=== PATIENT | female | born 1995 | race African-American/Black ===

== ENCOUNTER 2016-03-11 10:16 | Emergency (ER) | payer OTHER ==
[2016-03-11] MEDS ORDERED: METOCLOPRAMIDE INJ 10MG/2ML VIAL (J2765) As Ordered ONE (10:47)
[2016-03-11 11:09] LABS: BASO % 0.4 % (0.0-1.0); EOS # 0.1 K/mm3 (0.0-0.50); EOS % 1.1 % (0.0-3.0); LARGE UNSTAINED CELL # 0.1 K/mm3 (0.0-0.4); LARGE UNSTAINED CELL % 0.9 % (0.0-4.0); LYMPH # 2.2 K/mm3 (1.5-6.5); LYMPH % 18.8 % (24.0-44.0); MEAN CORPUSCULAR HEMOGLOBIN 27.9 pg (27.0-33.0); MEAN CORPUSCULAR VOLUME 81.9 fl (80.0-96.0); MONO # 0.4 K/mm3 (0.0-0.8); MONO % 3.1 % (0.0-5.0); NEUTROPHILS % 75.7 % (36.0-66.0); PLATELET COUNT, AUTOMATED 240 k/mm3 (150-450); RED CELL DISTRIBUTION WIDTH 13.6 % (11.5-14.5); WHITE BLOOD COUNT 11.8 K/mm3 (4.0-10.0)
[2016-03-11 11:30] LABS: ALBUMIN 3.9 GM/DL (3.2-5.2); ALBUMIN/GLOBULIN RATIO 0.95 (1.00-1.93); ALKALINE PHOSPHATASE 111 U/L (45-117); ALT/SGPT 23 U/L (12-78); AMYLASE 53 U/L (25-115); ANION GAP 10 MEQ/L (8-16); AST/SGOT 13 U/L (15-37); BILIRUBIN,DIRECT 0.1 MG/DL (0.0-0.2); BILIRUBIN,TOTAL 0.4 MG/DL (0.2-1.0); BLOOD UREA NITROGEN 12 MG/DL (7-18); CALCIUM LEVEL 9.2 MG/DL (8.5-10.1); CARBON DIOXIDE LEVEL 22 MEQ/L (21-32); CHLORIDE LEVEL 109 MEQ/L (98-107); GLUCOSE, FASTING 91 MG/DL (70-105); SODIUM LEVEL 141 MEQ/L (136-145)
[2016-03-11] MEDS ORDERED: NITROFURANTOIN (MACROBID) 100 MG CAP As Ordered ONE (13:19)
--- NOTE | 2016-03-11 13:27 | EDDOCDS ---
Physician Documentation [facility] Name: Flori Ramírez Age: 20 yrs Sex: Female : 1995 Arrival Date: 03/11/2016 Time: 10:16 Bed I4 / M4 Private MD: Other - Complete Info On Cds Disposition: 03/11/16 13:15 Discharged to Home/Self Care. Impression: Encounter for test, result positive - Early vs Missed on U/S, Urinary tract infection, site not specified, Nausea and vomiting. - Condition is Stable. - Discharge Instructions: Medicines During , First Trimester of , Fchc-on-Kmvv, Nausea and Vomiting, Chcd-pe-Efbv, Urinary Tract Infection, Bsyu-al-Oexi. - Prescriptions for Reglan 10 mg Oral Tablet - take 1 tablet by ORAL route every 6 hours take 30 minutes before meals and at bedtime; 20 tablet. Macrobid 100 mg Oral Capsule - take 100 milligram by ORAL route every 12 hours for 10 days; 20 capsule. - Medication Reconciliation, Local Pharmacy Hours form. - Follow up: [facility]; When: 1 - 2 days; Reason: Further diagnostic work-up, Recheck today's complaints, Continuance of care. Follow up: Emergency Department; Reason: Worsening of conditions. - Problem is new. - Symptoms have improved. Historical: - Allergies: no known allergies; - Home Meds: 1. none - PMHx: none; - PSHx: Adenoidectomy; Tonsillectomy; D & C; - Social history: Smoking status: Patient states former smoker of tobacco. No barriers to communication noted, The patient speaks fluent [place]. - Family history: Not pertinent. - : The pt / caregiver states he / she is not on anticoagulants. Home medication list is obtained from the patient. - Exposure Risk Screening:: None identified. 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 5 in. (165.10 cm) (R); Pain 0/10; 13:18 BP 121 / 70; Pulse 80; Resp 18; Temp 98.2; Pulse Ox 99% ; Pain 0/10; jam1 10:19 Body Mass Index 37.44 (102.06 kg, 165.10 cm) mt4 MDM: 10:37 Financial registration complete. lg 10:43 NS 0.9% 1000 ml IV at bolus once ordered. ef1 10:43 IV Saline Lock ordered. ef1 10:43 Undress patient appropriately for examination ordered. ef1 10:43 UCG by Nursing ordered. ef1 10:43 Metoclopramide 10 mg IV at 40 mg/hr once over 15 mins ordered. ef1 10:44 Amylase Ordered. EDMS 10:44 Basic Metabolic Profile Ordered. EDMS 10:44 CBC with Diff Ordered. EDMS 10:44 Lipase Ordered. EDMS 10:44 Liver Profile Ordered. EDMS 10:44 Urinalysis Ordered. EDMS 10:44 Urine Culture Ordered. EDMS 10:44 NOTHING BY MOUTH+DIET ordered. EDMS 10:51 Hcg, Serum Quantitative Ordered. EDMS 10:52 Ultrasound 1st Trimester Ordered. EDMS 10:52 Type & Screen Ordered. EDMS 10:55 [facility] [place] was scanned into [employer] and attached to record. lg 11:35 TRANSVAGINAL US Ordered. EDMS 11:35 DUPLEX SCAN LIMITED (DOPPLER) Ordered. EDMS 11:51 Basic Metabolic Profile Reviewed. ef1 11:51 CBC with Diff Reviewed. ef1 11:51 Liver Profile Reviewed. ef1 11:51 Urinalysis Reviewed. ef1 11:51 Amylase Reviewed. ef1 11:51 Lipase Reviewed. ef1 11:51 Hcg, Serum Quantitative Reviewed. ef1 11:51 Type & Screen Reviewed. ef1 13:14 Nitrofurantoin 100 mg PO once ordered. ef1 Point of Care Testing: Urine : 10:51 hCG Reading: Positive; Control Reading: Positive; kr3 Ranges: Administered Medications: 10:46 CANCELLED (Duplicate Order): NS 0.9% 1000 ml IV at bolus once dsf 10:52 Drug: NS 0.9% 1000 ml [sodium chloride 0.9 % injection solution] Route: IV; Rate: dsf bolus; Site: left antecubital; 13:22 Follow up: IV Status: Infusion discontinued; IV Intake: 600ml dsf 10:53 Drug: Metoclopramide 10 mg [metoclopramide 5 mg/mL injection solution] Route: IV; Rate: dsf 40 mg/hr; Infused Over: 15 mins; Site: left antecubital; 11:32 Follow up: IV Status: Completed infusion srm 13:22 Follow up: IV Status: Completed infusion; IV Intake: 10ml dsf 13:22 Drug: Nitrofurantoin 100 mg Route: PO; dsf Signatures: Dispatcher [employer] EDSebastian Brunson, RN RN dwg Micheline Quevedo, Reg Reg lg Valentina Ernandez, PA-C AMARILYS ef1 Shiloh Whiting RN RN dsf Hallie Damon RN srm The chart was reviewed and I authenticate all verbal orders and agree with the evaluation and treatment provided.Corrections: (The following items were deleted from the chart) 10:46 10:43 NS 0.9% 1000 ml IV at bolus once ordered. ef1 dsf Attachments: 10:55 [facility] [place] Agreement lg MTDD
--- NOTE | 2016-03-11 13:27 | EDDOCDS ---
Nurse's Notes [facility] Name: Flori Ramírez Age: 20 yrs Sex: Female : 1995 Arrival Date: 03/11/2016 Time: 10:16 Bed I4 / M4 Private MD: Other - Complete Info On Cds Diagnosis: Encounter for test, result positive-Early vs Missed on U/S;Urinary tract infection, site not specified;Nausea and vomiting Presentation: 03/11 10:22 Presenting complaint: Patient states: Multiple complaints, nausea/vomiting for 3-4 dwg days, headaches, dizziness, also states has had 4 positive tests at home. Adult Sepsis Screening: The patient does not have new or worsening altered mentation. Patient's respiratory rate is less than 22. Systolic blood pressure is greater than 100. Patient has a qSOFA score of 0- Negative Sepsis Screen. Suicide/Homicide risk assessment- the patient denies having any suicidal and/or homicidal ideations and does not present with any other emotional, behavioral or mental health complaints. Status: The patient is a dependent. Transition of care: patient was not received from another setting of care. 10:22 Acuity: RAFA Level 3 dwg 10:22 Method Of Arrival: Walkin/Carried/Asstd dwg Triage Assessment: 10:24 General: Appears in no apparent distress. Pain: Pain currently is 0 out of 10 on a pain dwg scale. HIV screening NA for this visit Offered previously. 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 none - PMHx: none; - PSHx: Adenoidectomy; Tonsillectomy; D & C; - Social history: Smoking status: Patient states former smoker of tobacco. No barriers to communication noted, The patient speaks fluent Azeri. - Family history: Not pertinent. - : The pt / caregiver states he / she is not on anticoagulants. Home medication list is obtained from the patient. - Exposure Risk Screening:: None identified. Screenin:30 Screening information is obtained from the patient. Primary language is Azeri. Fall jam1 risk: No risks identified. Assistance ADL's: requires no assistance with activities of daily living. Abuse/DV Screen: The patient / caregiver reports he/she is: not in a situation that causes fear, pain or injury. Nutritional screening: No deficits noted. Exposure Risk Screening: None identified. Advance Directives: Currently, there is no health care proxy. There is no active DNR order. There is no living will. There is no Power of Cycle Consultant. Advance directive information has not previously been placed in an [facility] medical record. Further advance directive information is declined. home support is adequate. Assessment: 10:56 General: Appears in no apparent distress, Behavior is appropriate for age, cooperative. srm Neurological: No deficits noted. EENT: No deficits noted. Respiratory: Airway is patent Respiratory effort is even, unlabored, Breath sounds are clear bilaterally. GI: Abdomen is non- distended Bowel sounds present X 4 quads. Abd is soft and non tender X 4 quads. Derm: No deficits noted. 11:32 General: Appears in no apparent distress, Behavior is appropriate for age, cooperative, srm at bedside. Neurological: No deficits noted. EENT: No deficits noted. Cardiovascular: No deficits noted. GI: No deficits noted. : No deficits noted. Musculoskeletal: No deficits noted. 12:15 Adult Sepsis Screening: The patient does not have new or worsening altered mentation. dsf Patient's respiratory rate is less than 22. Systolic blood pressure is greater than 100. Patient has a qSOFA score of 0- Negative Sepsis Screen. General: Appears in no apparent distress, comfortable, Behavior is appropriate for age, cooperative. Pain: Denies pain. Neurological: Level of Consciousness is awake, alert. Cardiovascular: Capillary refill < 3 seconds. Respiratory: Airway is patent Respiratory effort is even, unlabored, Respiratory pattern is regular, symmetrical. GI: Denies nausea. Derm: Skin is pink, warm & dry. 13:25 Adult Sepsis Screening: The patient does not have new or worsening altered mentation. dsf Patient's respiratory rate is less than 22. Systolic blood pressure is greater than 100. Patient has a qSOFA score of 0- Negative Sepsis Screen. General: Appears in no apparent distress, comfortable, Behavior is appropriate for age, cooperative. Pain: Denies pain. Neurological: Level of Consciousness is awake, alert. Cardiovascular: Capillary refill < 3 seconds. Respiratory: Airway is patent Respiratory effort is even, unlabored, Respiratory pattern is regular, symmetrical. GI: Denies nausea. Derm: Skin is pink, warm & dry. Vital Signs: 10:19 BP 134 / 66 RA Sitting (auto/reg); Pulse 84; Resp 18 S; Temp 98.9(O); Pulse Ox 100% on mt4 R/A; Weight 102.06 kg (R); Height 5 ft. 5 in. (165.10 cm) (R); Pain 0/10; 13:18 BP 121 / 70; Pulse 80; Resp 18; Temp 98.2; Pulse Ox 99% ; Pain 0/10; jam1 10:19 Body Mass Index 37.44 (102.06 kg, 165.10 cm) mt4 Vitals: 10:19 Log In Time: March 11, 2016 at 10:16. mt4 ED Course: 10:18 Patient visited by Sophie Vasquez. mt4 10:18 Patient moved to Waiting mt4 10:19 Other - Complete Info On Cds is Private Physician. mt4 10:21 Patient moved to Pre RCE mt4 10:23 Triage Initiated dwg 10:25 Patient moved to Triage 1 dwg 10:28 Valentina Ernandez PA-C is PHCP. ef1 10:28 Lawrence Bartholomew MD is Attending Physician. ef1 10:28 Patient visited by Valentina Ernandez PA-C. ef1 10:46 Patient moved to I4 / M4 kr3 10:50 Patient visited by Valentina Ernandez PA-C. ef1 10:53 The patient / caregiver is instructed regarding the plan of care and ED course. Patient srm has correct armband on for positive identification. Placed in gown. Bed in low position. Call light in reach. 10:53 Inserted saline lock: 20 gauge in left antecubital area and blood collected. srm 10:55 [facility] [place] Payment Agreement was scanned into [employer] and attached to record. lg 10:57 Patient visited by Hallie Damon RN. srm 10:57 Type & Screen Sent. srm 10:57 Hcg, Serum Quantitative Sent. srm 10:57 Amylase Sent. srm 10:57 Basic Metabolic Profile Sent. srm 10:57 CBC with Diff Sent. srm 10:57 Liver Profile Sent. srm 10:57 Lipase Sent. srm 10:57 Urinalysis Sent. srm 10:57 Urine Culture Sent. srm 11:11 Patient name changed from Flori\S\Abbi\S\Loera\S\ to Flori\S\Abbi\S\Ramírez. EDMS 11:33 Patient visited by Hallie Damon RN. srm 11:51 Patient visited by Valentina Ernandez PA-C. ef1 12:16 Patient visited by Shiloh Whiting RN. dsf 12:29 Patient has correct armband on for positive identification. Bed in low position. Call jam1 light in reach. Side rails up X 1. Door closed. 13:02 Patient visited by Valentina Ernandez PA-C. ef1 13:15 [place], OB is Referral Physician. ef1 13:25 Discontinued lock intact, bleeding controlled, pressure dressing applied, No dsf redness/swelling at site. No procedures done that require assistance. Administered Medications: 10:46 CANCELLED (Duplicate Order): NS 0.9% 1000 ml IV at bolus once dsf 10:52 Drug: NS 0.9% 1000 ml [sodium chloride 0.9 % injection solution] Route: IV; Rate: dsf bolus; Site: left antecubital; 13:22 Follow up: IV Status: Infusion discontinued; IV Intake: 600ml dsf 10:53 Drug: Metoclopramide 10 mg [metoclopramide 5 mg/mL injection solution] Route: IV; Rate: dsf 40 mg/hr; Infused Over: 15 mins; Site: left antecubital; 11:32 Follow up: IV Status: [facility] 13:22 Follow up: IV Status: Completed infusion; IV Intake: 10ml dsf 13:22 Drug: Nitrofurantoin 100 mg Route: PO; dsf Point of Care Testing: Urine : 10:51 hCG Reading: Positive; Control Reading: Positive; kr3 Ranges: Intake: 13:22 IV: 10.00ml; Total: 10.00ml. dsf 13:22 IV: 600.00ml; Total: 610.00ml. dsf Order Results: Lab Order: Amylase; SPEC'M 03/11/16 10:52 Test: AMYLASE; Value: 53; Range: 25-115; Units: U/L; Status: F Lab Order: Basic Metabolic Profile; SPEC'M 03/11/16 10:52 Test: GLUCOSE, FASTING; Value: 91; Range: 70-105; Units: MG/DL; Status: F Test: BLOOD UREA NITROGEN; Value: 12; Range: 7-18; Units: MG/DL; Status: F Test: CREATININE FOR GFR; Value: 0.80; Range: 0.55-1.02; Units: MG/DL; Status: F Test: SODIUM LEVEL; Value: 141; Range: 136-145; Units: MEQ/L; Status: F Test: POTASSIUM SERUM; Value: 4.0; Range: 3.5-5.1; Units: MEQ/L; Status: F Test: CHLORIDE LEVEL; Value: 109; Range: 98-107; Abnormal: Above high normal; Units: MEQ/L; Status: F Test: CARBON DIOXIDE LEVEL; Value: 22; Range: 21-32; Units: MEQ/L; Status: F Test: ANION GAP; Value: 10; Range: 8-16; Units: MEQ/L; Status: F Test: CALCIUM LEVEL; Value: 9.2; Range: 8.5-10.1; Units: MG/DL; Status: F Lab Order: CBC with Diff; SPEC'M 03/11/16 10:52 Test: WHITE BLOOD COUNT; Value: 11.8; Range: 4.0-10.0; Abnormal: Above high normal; Units: K/mm3; Status: F Test: RED BLOOD COUNT; Value: 4.94; Range: 4.00-5.40; Units: M/mm3; Status: F Test: HEMOGLOBIN; Value: 13.8; Range: 12.0-16.0; Units: g/dl; Status: F Test: HEMATOCRIT; Value: 40.4; Range: 36.0-47.0; Units: %; Status: F Test: MEAN CORPUSCULAR VOLUME; Value: 81.9; Range: 80.0-96.0; Units: fl; Status: F Test: MEAN CORPUSCULAR HEMOGLOBIN; Value: 27.9; Range: 27.0-33.0; Units: pg; Status: F Test: MEAN CORPUSCULAR HGB CONC; Value: 34.0; Range: 32.0-36.5; Units: g/dl; Status: F Test: RED CELL DISTRIBUTION WIDTH; Value: 13.6; Range: 11.5-14.5; Units: %; Status: F Test: PLATELET COUNT, AUTOMATED; Value: 240; Range: 150-450; Units: k/mm3; Status: F Test: NEUTROPHILS %; Value: 75.7; Range: 36.0-66.0; Abnormal: Above high normal; Units: %; Status: F Test: LYMPH %; Value: 18.8; Range: 24.0-44.0; Abnormal: Below low normal; Units: %; Status: F Test: MONO %; Value: 3.1; Range: 0.0-5.0; Units: %; Status: F Test: EOS %; Value: 1.1; Range: 0.0-3.0; Units: %; Status: F Test: BASO %; Value: 0.4; Range: 0.0-1.0; Units: %; Status: F Test: LARGE UNSTAINED CELL %; Value: 0.9; Range: 0.0-4.0; Units: %; Status: F Test: NEUTROPHILS #; Value: 9.0; Range: 1.8-7.7; Abnormal: Above high normal; Units: K/mm3; Status: F Test: LYMPH #; Value: 2.2; Range: 1.5-6.5; Units: K/mm3; Status: F Test: MONO #; Value: 0.4; Range: 0.0-0.8; Units: K/mm3; Status: F Test: EOS #; Value: 0.1; Range: 0.0-0.50; Units: K/mm3; Status: F Test: BASO #; Value: 0.0; Range: 0.0-0.2; Units: K/mm3; Status: F Test: LARGE UNSTAINED CELL #; Value: 0.1; Range: 0.0-0.4; Units: K/mm3; Status: F Lab Order: Lipase; SPEC'M 03/11/16 10:52 Test: LIPASE; Value: 114; Range: 73-393; Units: U/L; Status: F Lab Order: Liver Profile; SPEC'M 03/11/16 10:52 Test: AST/SGOT; Value: 13; Range: 15-37; Abnormal: Below low normal; Units: U/L; Status: F Test: ALT/SGPT; Value: 23; Range: 12-78; Units: U/L; Status: F Test: ALKALINE PHOSPHATASE; Value: 111; Range: 45-117; Units: U/L; Status: F Test: BILIRUBIN,TOTAL; Value: 0.4; Range: 0.2-1.0; Units: MG/DL; Status: F Test: BILIRUBIN,DIRECT; Value: 0.1; Range: 0.0-0.2; Units: MG/DL; Status: F Test: TOTAL PROTEIN; Value: 8.0; Range: 6.4-8.2; Units: GM/DL; Status: F Test: ALBUMIN; Value: 3.9; Range: 3.2-5.2; Units: GM/DL; Status: F Test: ALBUMIN/GLOBULIN RATIO; Value: 0.95; Range: 1.00-1.93; Abnormal: Below low normal; Status: F Lab Order: Urinalysis; SPEC'M 03/11/16 10:52 Test: APPEARANCE, URINE; Value: CLOUDY; Range: CLEAR; Abnormal: Above high normal; Status: F Test: COLOR, URINE; Value: YELLOW; Range: YELLOW; Status: F Test: PH,URINE; Value: 5.0; Range: 5.0-9.0; Units: UNITS; Status: F Test: SPECIFIC GRAVITY URINE AUTO; Value: 1.029; Range: 1.002-1.035; Status: F Test: PROTEIN, URINE AUTO; Value: 1+; Range: NEGATIVE; Abnormal: Above high normal; Units: mg/dL; Status: F Test: GLUCOSE, URINE (UA) AUTO; Value: NEGATIVE; Range: NEGATIVE; Units: mg/dL; Status: F Test: KETONE, URINE AUTO; Value: NEGATIVE; Range: NEGATIVE; Units: mg/dL; Status: F Test: UROBILINOGEN, URINE AUTO; Value: 0.2; Range: 0.0-2.0; Units: mg/dL; Status: F Test: BILIRUBIN, URINE AUTO; Value: NEGATIVE; Range: NEGATIVE; Status: F Test: NITRITE, URINE AUTO; Value: NEGATIVE; Range: NEGATIVE; Status: F Test: LEUKOCYTE ESTERASE, URINE AUTO; Value: 2+; Range: NEGATIVE; Abnormal: Above high normal; Status: F Test: BLOOD, URINE BLOOD; Value: NEGATIVE; Range: NEGATIVE; Status: F Test: WBC, URINE AUTO; Value: 14; Range: 0-3; Abnormal: Above high normal; Units: /HPF; Status: F Test: RBC, URINE AUTO; Value: 4; Range: 0-3; Abnormal: Above high normal; Units: /HPF; Status: F Test: BACTERIA, URINE AUTO; Value: NEGATIVE; Range: NEGATIVE; Status: F Test: SQUAMOUS EPITHELIAL CELL UR AU; Value: 11; Range: 0-6; Units: /HPF; Status: F Test: MUCUS, URINE; Value: LARGE; Range: NEGATIVE; Status: F Test: HYALINE CAST, URINE AUTO; Value: 0; Range: 0-1; Units: /LPF; Status: F Lab Order: Hcg, Serum Quantitative; SPEC'M 03/11/16 10:52 Test: HCG, SERUM QUANTITATIVE; Value: 71; Units: MIU/ML; Status: F Test Note: ; GESTATIONAL AGE APPROXIMATE HCG RANGE (MIU/ML) 0.2-1 WEEK 5-50 1-2 WEEKS 50-500 2-3 WEEKS 100-5,000 3-4 WEEKS 500-10,000 4-5 WEEKS 1,000-50,000 5-6 WEEKS 10,000-100,000 6-8 WEEKS 15,000-200,000 2-3 MONTHS 10,000-100,000 NON FEMALES LESS THAN 3.0 Patient samples may contain human heterophilic antibodies that could react with immunoassays to give falsely elevated or depressed results. This assay has been designed to minimize interference from heterophilic antibodies. Elevated hCG levels have also been associated with trophoblastic disease and nontrophoblastic neoplasms. The possibility of having these diseases should be considered before a diagnosis of is made. This test is not intended for use as a surrogate marker for aiding in the diagnosis or monitoring the treatment of cancer patients. [employer] methodology. Lab Order: Type & Screen; SPEC'M 03/11/16 10:52 Test: BLOOD TYPE; Value: B POS; Status: F Test: AB SCREEN (INDIRECT PACO)GEL; Value: NEGATIVE; Status: F Outcome: 13:15 Discharge ordered by Provider. ef1 13:25 Discharge Assessment: Patient awake, alert and oriented x 3. No cognitive and/or dsf functional deficits noted. Patient verbalized understanding of disposition instructions. patient administered narcotics - no. The following High Risk Discharge criteria are identified: None. Discharged to home ambulatory, with significant other. Condition: stable. Discharge instructions given to patient, Instructed on discharge instructions, follow up and referral plans. medication usage, Demonstrated understanding of instructions, medications, Pt was receptive of discharge instructions/ teaching. Prescriptions given X 2. Ultrasound Study completed. Property sent home with patient. 13:26 Patient left the ED. dsf Signatures: Dispatcher [employer] EDSebastian Brunson, RN RN Hallie Wellington RN RN srm Guerda Muro, CRM MARKETING SPECIALIST CRM MARKETING SPECIALIST jam1 Micheline Quevedo, Rossana Masters lgRN RN kr3 Sophie Vasquez mt4 Valentina Ernandez, PA-C PA-C ef1 Shiloh Whiting,RN RN dsf Corrections: (The following items were deleted from the chart) 11:42 10:24 LMP 02/03/2016 luis sher MTDD
--- NOTE | 2016-03-11 22:55 | REP ---
First trimester OB ultrasound 03/11/2016 Indication: Pelvic pain, mid, positive urine test Comparison: None Date of last menstrual period: , corresponding to 2-ptju-2-day gestational age the patient is G3, P1, Ab 1 Findings: Uterus measures 8.7 x 4.6 x 5.8 cm. Endometrium is 8.7 mm in thickness. There is no evidence of intrauterine gestational sac or pole. Right ovary measures 4 x 3.1 x 3.4 cm and contains an involuting 1.3 cm corpus luteum cyst. There are some prominent vessels in the region of the right adnexa. Left ovary measures 3.9 x 2.1 x 3.3 cm. Perfusion is noted to the bilateral ovaries, therefore no evidence of torsion. There is a small amount of free fluid is seen adjacent to the right ovary. Impression Endometrium 8.7 mm in thickness and smooth. There is no intrauterine gestational sac or pole. The differential diagnosis at this time includes early intrauterine , and possibly missed . Ectopic cannot be completely excluded on the basis of this study. Recommend correlation with serial quantitative beta HCG and follow-up OB ultrasound to ensure a viable intrauterine . Signed by Fiordaliza Mtz MD 03/11/2016 10:46 P
--- NOTE | 2016-03-13 14:27 | EDDOCDS ---
Nurse's Notes [facility], [place] Name: Flori Ramírez Age: 20 yrs Sex: Female : 1995 Arrival Date: 03/11/2016 Time: 10:16 Bed I4 / M4 Private MD: Other - Complete Info On Cds Diagnosis: Encounter for test, result positive-Early vs Missed on U/S;Urinary tract infection, site not specified;Nausea and vomiting Presentation: 03/11 10:22 Presenting complaint: Patient states: Multiple complaints, nausea/vomiting for 3-4 dwg days, headaches, dizziness, also states has had 4 positive tests at home. Adult Sepsis Screening: The patient does not have new or worsening altered mentation. Patient's respiratory rate is less than 22. Systolic blood pressure is greater than 100. Patient has a qSOFA score of 0- Negative Sepsis Screen. Suicide/Homicide risk assessment- the patient denies having any suicidal and/or homicidal ideations and does not present with any other emotional, behavioral or mental health complaints. Status: The patient is a dependent. Transition of care: patient was not received from another setting of care. 10:22 Acuity: RAFA Level 3 dwg 10:22 Method Of Arrival: Walkin/Carried/Asstd dwg Triage Assessment: 10:24 General: Appears in no apparent distress. Pain: Pain currently is 0 out of 10 on a pain dwg scale. HIV screening NA for this visit Offered previously. 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 none - PMHx: none; - PSHx: Adenoidectomy; Tonsillectomy; D & C; - Social history: Smoking status: Patient states former smoker of tobacco. No barriers to communication noted, The patient speaks fluent Telugu. - Family history: Not pertinent. - : The pt / caregiver states he / she is not on anticoagulants. Home medication list is obtained from the patient. - Exposure Risk Screening:: None identified. Screenin:30 Screening information is obtained from the patient. Primary language is Telugu. Fall jam1 risk: No risks identified. Assistance ADL's: requires no assistance with activities of daily living. Abuse/DV Screen: The patient / caregiver reports he/she is: not in a situation that causes fear, pain or injury. Nutritional screening: No deficits noted. Exposure Risk Screening: None identified. Advance Directives: Currently, there is no health care proxy. There is no active DNR order. There is no living will. There is no Power of Literature Teacher. Advance directive information has not previously been placed in an [facility] medical record. Further advance directive information is declined. home support is adequate. Assessment: 10:56 General: Appears in no apparent distress, Behavior is appropriate for age, cooperative. srm Neurological: No deficits noted. EENT: No deficits noted. Respiratory: Airway is patent Respiratory effort is even, unlabored, Breath sounds are clear bilaterally. GI: Abdomen is non- distended Bowel sounds present X 4 quads. Abd is soft and non tender X 4 quads. Derm: No deficits noted. 11:32 General: Appears in no apparent distress, Behavior is appropriate for age, cooperative, srm at bedside. Neurological: No deficits noted. EENT: No deficits noted. Cardiovascular: No deficits noted. GI: No deficits noted. : No deficits noted. Musculoskeletal: No deficits noted. 12:15 Adult Sepsis Screening: The patient does not have new or worsening altered mentation. dsf Patient's respiratory rate is less than 22. Systolic blood pressure is greater than 100. Patient has a qSOFA score of 0- Negative Sepsis Screen. General: Appears in no apparent distress, comfortable, Behavior is appropriate for age, cooperative. Pain: Denies pain. Neurological: Level of Consciousness is awake, alert. Cardiovascular: Capillary refill < 3 seconds. Respiratory: Airway is patent Respiratory effort is even, unlabored, Respiratory pattern is regular, symmetrical. GI: Denies nausea. Derm: Skin is pink, warm & dry. 13:25 Adult Sepsis Screening: The patient does not have new or worsening altered mentation. dsf Patient's respiratory rate is less than 22. Systolic blood pressure is greater than 100. Patient has a qSOFA score of 0- Negative Sepsis Screen. General: Appears in no apparent distress, comfortable, Behavior is appropriate for age, cooperative. Pain: Denies pain. Neurological: Level of Consciousness is awake, alert. Cardiovascular: Capillary refill < 3 seconds. Respiratory: Airway is patent Respiratory effort is even, unlabored, Respiratory pattern is regular, symmetrical. GI: Denies nausea. Derm: Skin is pink, warm & dry. Vital Signs: 10:19 BP 134 / 66 RA Sitting (auto/reg); Pulse 84; Resp 18 S; Temp 98.9(O); Pulse Ox 100% on mt4 R/A; Weight 102.06 kg (R); Height 5 ft. 5 in. (165.10 cm) (R); Pain 0/10; 13:18 BP 121 / 70; Pulse 80; Resp 18; Temp 98.2; Pulse Ox 99% ; Pain 0/10; jam1 10:19 Body Mass Index 37.44 (102.06 kg, 165.10 cm) mt4 Vitals: 10:19 Log In Time: March 11, 2016 at 10:16. mt4 ED Course: 10:18 Patient visited by Sophie Vasquez. mt4 10:18 Patient moved to Waiting mt4 10:19 Other - Complete Info On Cds is Private Physician. mt4 10:21 Patient moved to Pre RCE mt4 10:23 Triage Initiated dwg 10:25 Patient moved to Triage 1 dwg 10:28 Valentina Ernandez PA-C is PHCP. ef1 10:28 Lawrence Bartholomew MD is Attending Physician. ef1 10:28 Patient visited by Valentina Ernandez PA-C. ef1 10:46 Patient moved to I4 / M4 kr3 10:50 Patient visited by Valentina Ernandez PA-C. ef1 10:53 The patient / caregiver is instructed regarding the plan of care and ED course. Patient srm has correct armband on for positive identification. Placed in gown. Bed in low position. Call light in reach. 10:53 Inserted saline lock: 20 gauge in left antecubital area and blood collected. srm 10:55 [facility] [place] Payment Agreement was scanned into [employer] and attached to record. lg 10:57 Patient visited by Hallie Damon RN. srm 10:57 Type & Screen Sent. srm 10:57 Hcg, Serum Quantitative Sent. srm 10:57 Amylase Sent. srm 10:57 Basic Metabolic Profile Sent. srm 10:57 CBC with Diff Sent. srm 10:57 Liver Profile Sent. srm 10:57 Lipase Sent. srm 10:57 Urinalysis Sent. srm 10:57 Urine Culture Sent. srm 11:11 Patient name changed from Flori\S\Abbi\S\Loera\S\ to Flori\S\Abbi\S\Ramírez. EDMS 11:33 Patient visited by Hallie Damon RN. srm 11:51 Patient visited by Valentina Ernandez PA-C. ef1 12:16 Patient visited by Shiloh Whiting RN. dsf 12:29 Patient has correct armband on for positive identification. Bed in low position. Call jam1 light in reach. Side rails up X 1. Door closed. 13:02 Patient visited by Valentina Ernandez PA-C. ef1 13:15 [place], OB is Referral Physician. ef1 13:25 Discontinued lock intact, bleeding controlled, pressure dressing applied, No dsf redness/swelling at site. No procedures done that require assistance. 14:26 T-Sheet-- Draft Copy was scanned into [employer] and attached to record. gb 14:26 Radiology Report was scanned into [employer] and attached to record. gb 22:57 Ultrasound 1st Trimester Returned. EDMS Administered Medications: 10:46 CANCELLED (Duplicate Order): NS 0.9% 1000 ml IV at bolus once dsf 10:52 Drug: NS 0.9% 1000 ml [sodium chloride 0.9 % injection solution] Route: IV; Rate: dsf bolus; Site: left antecubital; 13:22 Follow up: IV Status: Infusion discontinued; IV Intake: 600ml dsf 10:53 Drug: Metoclopramide 10 mg [metoclopramide 5 mg/mL injection solution] Route: IV; Rate: dsf 40 mg/hr; Infused Over: 15 mins; Site: left antecubital; 11:32 Follow up: IV Status: Completed infusion [facility] 13:22 Follow up: IV Status: Completed infusion; IV Intake: 10ml dsf 13:22 Drug: Nitrofurantoin 100 mg Route: PO; dsf Point of Care Testing: Urine : 10:51 hCG Reading: Positive; Control Reading: Positive; kr3 Ranges: Intake: 13:22 IV: 10.00ml; Total: 10.00ml. dsf 13:22 IV: 600.00ml; Total: 610.00ml. dsf Order Results: Lab Order: Amylase; SPEC'M 03/11/16 10:52 Test: AMYLASE; Value: 53; Range: 25-115; Units: U/L; Status: F Lab Order: Basic Metabolic Profile; SPEC'M 03/11/16 10:52 Test: GLUCOSE, FASTING; Value: 91; Range: 70-105; Units: MG/DL; Status: F Test: BLOOD UREA NITROGEN; Value: 12; Range: 7-18; Units: MG/DL; Status: F Test: CREATININE FOR GFR; Value: 0.80; Range: 0.55-1.02; Units: MG/DL; Status: F Test: SODIUM LEVEL; Value: 141; Range: 136-145; Units: MEQ/L; Status: F Test: POTASSIUM SERUM; Value: 4.0; Range: 3.5-5.1; Units: MEQ/L; Status: F Test: CHLORIDE LEVEL; Value: 109; Range: 98-107; Abnormal: Above high normal; Units: MEQ/L; Status: F Test: CARBON DIOXIDE LEVEL; Value: 22; Range: 21-32; Units: MEQ/L; Status: F Test: ANION GAP; Value: 10; Range: 8-16; Units: MEQ/L; Status: F Test: CALCIUM LEVEL; Value: 9.2; Range: 8.5-10.1; Units: MG/DL; Status: F Lab Order: CBC with Diff; SPEC'M 03/11/16 10:52 Test: WHITE BLOOD COUNT; Value: 11.8; Range: 4.0-10.0; Abnormal: Above high normal; Units: K/mm3; Status: F Test: RED BLOOD COUNT; Value: 4.94; Range: 4.00-5.40; Units: M/mm3; Status: F Test: HEMOGLOBIN; Value: 13.8; Range: 12.0-16.0; Units: g/dl; Status: F Test: HEMATOCRIT; Value: 40.4; Range: 36.0-47.0; Units: %; Status: F Test: MEAN CORPUSCULAR VOLUME; Value: 81.9; Range: 80.0-96.0; Units: fl; Status: F Test: MEAN CORPUSCULAR HEMOGLOBIN; Value: 27.9; Range: 27.0-33.0; Units: pg; Status: F Test: MEAN CORPUSCULAR HGB CONC; Value: 34.0; Range: 32.0-36.5; Units: g/dl; Status: F Test: RED CELL DISTRIBUTION WIDTH; Value: 13.6; Range: 11.5-14.5; Units: %; Status: F Test: PLATELET COUNT, AUTOMATED; Value: 240; Range: 150-450; Units: k/mm3; Status: F Test: NEUTROPHILS %; Value: 75.7; Range: 36.0-66.0; Abnormal: Above high normal; Units: %; Status: F Test: LYMPH %; Value: 18.8; Range: 24.0-44.0; Abnormal: Below low normal; Units: %; Status: F Test: MONO %; Value: 3.1; Range: 0.0-5.0; Units: %; Status: F Test: EOS %; Value: 1.1; Range: 0.0-3.0; Units: %; Status: F Test: BASO %; Value: 0.4; Range: 0.0-1.0; Units: %; Status: F Test: LARGE UNSTAINED CELL %; Value: 0.9; Range: 0.0-4.0; Units: %; Status: F Test: NEUTROPHILS #; Value: 9.0; Range: 1.8-7.7; Abnormal: Above high normal; Units: K/mm3; Status: F Test: LYMPH #; Value: 2.2; Range: 1.5-6.5; Units: K/mm3; Status: F Test: MONO #; Value: 0.4; Range: 0.0-0.8; Units: K/mm3; Status: F Test: EOS #; Value: 0.1; Range: 0.0-0.50; Units: K/mm3; Status: F Test: BASO #; Value: 0.0; Range: 0.0-0.2; Units: K/mm3; Status: F Test: LARGE UNSTAINED CELL #; Value: 0.1; Range: 0.0-0.4; Units: K/mm3; Status: F Lab Order: Lipase; SPEC'M 03/11/16 10:52 Test: LIPASE; Value: 114; Range: 73-393; Units: U/L; Status: F Lab Order: Liver Profile; SPEC'M 03/11/16 10:52 Test: AST/SGOT; Value: 13; Range: 15-37; Abnormal: Below low normal; Units: U/L; Status: F Test: ALT/SGPT; Value: 23; Range: 12-78; Units: U/L; Status: F Test: ALKALINE PHOSPHATASE; Value: 111; Range: 45-117; Units: U/L; Status: F Test: BILIRUBIN,TOTAL; Value: 0.4; Range: 0.2-1.0; Units: MG/DL; Status: F Test: BILIRUBIN,DIRECT; Value: 0.1; Range: 0.0-0.2; Units: MG/DL; Status: F Test: TOTAL PROTEIN; Value: 8.0; Range: 6.4-8.2; Units: GM/DL; Status: F Test: ALBUMIN; Value: 3.9; Range: 3.2-5.2; Units: GM/DL; Status: F Test: ALBUMIN/GLOBULIN RATIO; Value: 0.95; Range: 1.00-1.93; Abnormal: Below low normal; Status: F Lab Order: Urinalysis; [facility]'M 03/11/16 10:52 Test: APPEARANCE, URINE; Value: CLOUDY; Range: CLEAR; Abnormal: Above high normal; Status: F Test: COLOR, URINE; Value: YELLOW; Range: YELLOW; Status: F Test: PH,URINE; Value: 5.0; Range: 5.0-9.0; Units: UNITS; Status: F Test: SPECIFIC GRAVITY URINE AUTO; Value: 1.029; Range: 1.002-1.035; Status: F Test: PROTEIN, URINE AUTO; Value: 1+; Range: NEGATIVE; Abnormal: Above high normal; Units: mg/dL; Status: F Test: GLUCOSE, URINE (UA) AUTO; Value: NEGATIVE; Range: NEGATIVE; Units: mg/dL; Status: F Test: KETONE, URINE AUTO; Value: NEGATIVE; Range: NEGATIVE; Units: mg/dL; Status: F Test: UROBILINOGEN, URINE AUTO; Value: 0.2; Range: 0.0-2.0; Units: mg/dL; Status: F Test: BILIRUBIN, URINE AUTO; Value: NEGATIVE; Range: NEGATIVE; Status: F Test: NITRITE, URINE AUTO; Value: NEGATIVE; Range: NEGATIVE; Status: F Test: LEUKOCYTE ESTERASE, URINE AUTO; Value: 2+; Range: NEGATIVE; Abnormal: Above high normal; Status: F Test: BLOOD, URINE BLOOD; Value: NEGATIVE; Range: NEGATIVE; Status: F Test: WBC, URINE AUTO; Value: 14; Range: 0-3; Abnormal: Above high normal; Units: /HPF; Status: F Test: RBC, URINE AUTO; Value: 4; Range: 0-3; Abnormal: Above high normal; Units: /HPF; Status: F Test: BACTERIA, URINE AUTO; Value: NEGATIVE; Range: NEGATIVE; Status: F Test: SQUAMOUS EPITHELIAL CELL UR AU; Value: 11; Range: 0-6; Units: /HPF; Status: F Test: MUCUS, URINE; Value: LARGE; Range: NEGATIVE; Status: F Test: HYALINE CAST, URINE AUTO; Value: 0; Range: 0-1; Units: /LPF; Status: F Lab Order: Urine Culture; SPEC' 03/11/16 10:52 Test: URINE CULTURE; Value: URINE CULTURE RESULT NO GROWTH; Status: F Lab Order: Hcg, Serum Quantitative; SPEC'M 03/11/16 10:52 Test: HCG, SERUM QUANTITATIVE; Value: 71; Units: MIU/ML; Status: F Test Note: ; GESTATIONAL AGE APPROXIMATE HCG RANGE (MIU/ML) 0.2-1 WEEK 5-50 1-2 WEEKS 50-500 2-3 WEEKS 100-5,000 3-4 WEEKS 500-10,000 4-5 WEEKS 1,000-50,000 5-6 WEEKS 10,000-100,000 6-8 WEEKS 15,000-200,000 2-3 MONTHS 10,000-100,000 NON FEMALES LESS THAN 3.0 Patient samples may contain human heterophilic antibodies that could react with immunoassays to give falsely elevated or depressed results. This assay has been designed to minimize interference from heterophilic antibodies. Elevated hCG levels have also been associated with trophoblastic disease and nontrophoblastic neoplasms. The possibility of having these diseases should be considered before a diagnosis of is made. This test is not intended for use as a surrogate marker for aiding in the diagnosis or monitoring the treatment of cancer patients. Anda methodology. Lab Order: Type & Screen; SPEC'M 03/11/16 10:52 Test: BLOOD TYPE; Value: B POS; Status: F Test: AB SCREEN (INDIRECT PACO)GEL; Value: NEGATIVE; Status: F Radiology Order: Ultrasound 1st Trimester Test: Ultrasound 1st Trimester REASON FOR EXAMINATION: pelvic pain, ; First trimester OB ultrasound 03/11/2016; ; Indication: Pelvic pain, mid, positive urine test; ; Comparison: None; ; Date of last menstrual period: , corresponding to 5-rale-5-day; gestational age the patient is G3, P1, Ab 1; ; Findings: Uterus measures 8.7 x 4.6 x 5.8 cm. Endometrium is 8.7 mm in; thickness. There is no evidence of intrauterine gestational sac or pole.; ; Right ovary measures 4 x 3.1 x 3.4 cm and contains an involuting 1.3 cm corpus; luteum cyst. There are some prominent vessels in the region of the right adnexa.; ; Left ovary measures 3.9 x 2.1 x 3.3 cm. Perfusion is noted to the bilateral; ovaries, therefore no evidence of torsion.; ; There is a small amount of free fluid is seen adjacent to the right ovary.; ; Impression; ; ; Endometrium 8.7 mm in thickness and smooth. There is no intrauterine; gestational sac or pole. The differential diagnosis at this time includes; early intrauterine , and possibly missed . Ectopic ; cannot be completely excluded on the basis of this study.; ; Recommend correlation with serial quantitative beta HCG and follow-up OB; ultrasound to ensure a viable intrauterine .; ; ; ; ; Signed by; Fiordaliza Mtz MD 03/11/2016 10:46 P; Outcome: 13:15 Discharge ordered by Provider. ef1 13:25 Discharge Assessment: Patient awake, alert and oriented x 3. No cognitive and/or dsf functional deficits noted. Patient verbalized understanding of disposition instructions. patient administered narcotics - no. The following High Risk Discharge criteria are identified: None. Discharged to home ambulatory, with significant other. Condition: stable. Discharge instructions given to patient, Instructed on discharge instructions, follow up and referral plans. medication usage, Demonstrated understanding of instructions, medications, Pt was receptive of discharge instructions/ teaching. Prescriptions given X 2. Ultrasound Study completed. Property sent home with patient. 13:26 Patient left the ED. dsf Signatures: Dispatcher [employer] Sebastian Becker, RN RN Hallie Wellington RN RN srm Guerda Muro, NAYAN FOUNDRY TECHNICIAN jam1 Smitha Bruno, Reg Reg gb SarahMicheline mahajan, Reg Reg lg Rossana Santana,RN RN kr3 Sophie Vasquez mt4 Valentina Ernandez, PA-C PA-C ef1 Shiloh Whiting RN RN dsf Corrections: (The following items were deleted from the chart) 11:42 10:24 LMP 02/03/2016 luis sher Chart Complete MTDD
--- NOTE | 2016-03-13 14:27 | EDDOCDS ---
Physician Documentation [facility] Name: Flori Ramírez Age: 20 yrs Sex: Female : 1995 Arrival Date: 03/11/2016 Time: 10:16 Bed I4 / M4 Private MD: Other - Complete Info On Cds Disposition: 03/11/16 13:15 Discharged to Home/Self Care. Impression: Encounter for test, result positive - Early vs Missed on U/S, Urinary tract infection, site not specified, Nausea and vomiting. - Condition is Stable. - Discharge Instructions: Medicines During , First Trimester of , [id number], Nausea and Vomiting, Wyri-fe-Wtfc, Urinary Tract Infection, [id number]. - Prescriptions for Reglan 10 mg Oral Tablet - take 1 tablet by ORAL route every 6 hours take 30 minutes before meals and at bedtime; 20 tablet. Macrobid 100 mg Oral Capsule - take 100 milligram by ORAL route every 12 hours for 10 days; 20 capsule. - Medication Reconciliation, Local Pharmacy Hours form. - Follow up: [facility] [place]; When: 1 - 2 days; Reason: Further diagnostic work-up, Recheck today's complaints, Continuance of care. Follow up: Emergency Department; Reason: Worsening of conditions. - Problem is new. - Symptoms have improved. Historical: - Allergies: no known allergies; - Home Meds: 1. none - PMHx: none; - PSHx: Adenoidectomy; Tonsillectomy; D & C; - Social history: Smoking status: Patient states former smoker of tobacco. No barriers to communication noted, The patient speaks fluent [place]. - Family history: Not pertinent. - : The pt / caregiver states he / she is not on anticoagulants. Home medication list is obtained from the patient. - Exposure Risk Screening:: None identified. 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 5 in. (165.10 cm) (R); Pain 0/10; 13:18 BP 121 / 70; Pulse 80; Resp 18; Temp 98.2; Pulse Ox 99% ; Pain 0/10; jam1 10:19 Body Mass Index 37.44 (102.06 kg, 165.10 cm) mt4 MDM: 10:37 Financial registration complete. lg 10:43 NS 0.9% 1000 ml IV at bolus once ordered. ef1 10:43 IV Saline Lock ordered. ef1 10:43 Undress patient appropriately for examination ordered. ef1 10:43 UCG by Nursing ordered. ef1 10:43 Metoclopramide 10 mg IV at 40 mg/hr once over 15 mins ordered. ef1 10:44 Amylase Ordered. EDMS 10:44 Basic Metabolic Profile Ordered. EDMS 10:44 CBC with Diff Ordered. EDMS 10:44 Lipase Ordered. EDMS 10:44 Liver Profile Ordered. EDMS 10:44 Urinalysis Ordered. EDMS 10:44 Urine Culture Ordered. EDMS 10:44 NOTHING BY MOUTH+DIET ordered. EDMS 10:51 Hcg, Serum Quantitative Ordered. EDMS 10:52 Ultrasound 1st Trimester Ordered. EDMS 10:52 Type & Screen Ordered. EDMS 10:55 [facility] [place] Payment Agreement was scanned into [employer] and attached to record. lg 11:35 TRANSVAGINAL US Ordered. EDMS 11:35 DUPLEX SCAN LIMITED (DOPPLER) Ordered. EDMS 11:51 Basic Metabolic Profile Reviewed. ef1 11:51 CBC with Diff Reviewed. ef1 11:51 Liver Profile Reviewed. ef1 11:51 Urinalysis Reviewed. ef1 11:51 Amylase Reviewed. ef1 11:51 Lipase Reviewed. ef1 11:51 Hcg, Serum Quantitative Reviewed. ef1 11:51 Type & Screen Reviewed. ef1 13:14 Nitrofurantoin 100 mg PO once ordered. ef1 14:26 T-Sheet-- Draft Copy was scanned into [employer] and attached to record. gb 14:26 Radiology Report was scanned into [employer] and attached to record. gb Point of Care Testing: Urine : 10:51 hCG Reading: Positive; Control Reading: Positive; kr3 Ranges: Administered Medications: 10:46 CANCELLED (Duplicate Order): NS 0.9% 1000 ml IV at bolus once dsf 10:52 Drug: NS 0.9% 1000 ml [sodium chloride 0.9 % injection solution] Route: IV; Rate: dsf bolus; Site: left antecubital; 13:22 Follow up: IV Status: Infusion discontinued; IV Intake: 600ml dsf 10:53 Drug: Metoclopramide 10 mg [metoclopramide 5 mg/mL injection solution] Route: IV; Rate: dsf 40 mg/hr; Infused Over: 15 mins; Site: left antecubital; 11:32 Follow up: IV Status: Completed infusion srm 13:22 Follow up: IV Status: Completed infusion; IV Intake: 10ml dsf 13:22 Drug: Nitrofurantoin 100 mg Route: PO; dsf Signatures: Dispatcher [employer] EDSebastian Brunson, RN RN dwg Smitha Bruno, Reg Reg gb Micheline Quevedo, Reg Reg lg Valentina Ernandez, PAGabyC PAEdna ef1 Shiloh Whiting RN RN dsf Hallie Damon RN srm The chart was reviewed and I authenticate all verbal orders and agree with the evaluation and treatment provided.Corrections: (The following items were deleted from the chart) 10:46 10:43 NS 0.9% 1000 ml IV at bolus once ordered. ef1 dsf Attachments: 10:55 [facility] Payment Agreement lg 14:26 T-Sheet-- Draft Copy Chart Complete MTDD
--- NOTE | 2016-03-13 14:27 | EDDOCDS ---
Physician Documentation [facility] Name: Flori Ramírez Age: 20 yrs Sex: Female : 1995 Arrival Date: 03/11/2016 Time: 10:16 Bed I4 / M4 Private MD: Other - Complete Info On Cds Disposition: 03/11/16 13:15 Discharged to Home/Self Care. Impression: Encounter for test, result positive - Early vs Missed on U/S, Urinary tract infection, site not specified, Nausea and vomiting. - Condition is Stable. - Discharge Instructions: Medicines During , First Trimester of , Elpc-om-Dwnb, Nausea and Vomiting, Tpzs-mq-Hsak, Urinary Tract Infection, Fgev-mz-Luwj. - Prescriptions for Reglan 10 mg Oral Tablet - take 1 tablet by ORAL route every 6 hours take 30 minutes before meals and at bedtime; 20 tablet. Macrobid 100 mg Oral Capsule - take 100 milligram by ORAL route every 12 hours for 10 days; 20 capsule. - Medication Reconciliation, Local Pharmacy Hours form. - Follow up: [facility] [place]; When: 1 - 2 days; Reason: Further diagnostic work-up, Recheck today's complaints, Continuance of care. Follow up: Emergency Department; Reason: Worsening of conditions. - Problem is new. - Symptoms have improved. Historical: - Allergies: no known allergies; - Home Meds: 1. none - PMHx: none; - PSHx: Adenoidectomy; Tonsillectomy; D & C; - Social history: Smoking status: Patient states former smoker of tobacco. No barriers to communication noted, The patient speaks fluent [place] Zealander. - Family history: Not pertinent. - : The pt / caregiver states he / she is not on anticoagulants. Home medication list is obtained from the patient. - Exposure Risk Screening:: None identified. 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 5 in. (165.10 cm) (R); Pain 0/10; 13:18 BP 121 / 70; Pulse 80; Resp 18; Temp 98.2; Pulse Ox 99% ; Pain 0/10; jam1 10:19 Body Mass Index 37.44 (102.06 kg, 165.10 cm) mt4 MDM: 10:37 Financial registration complete. lg 10:43 NS 0.9% 1000 ml IV at bolus once ordered. ef1 10:43 IV Saline Lock ordered. ef1 10:43 Undress patient appropriately for examination ordered. ef1 10:43 UCG by Nursing ordered. ef1 10:43 Metoclopramide 10 mg IV at 40 mg/hr once over 15 mins ordered. ef1 10:44 Amylase Ordered. EDMS 10:44 Basic Metabolic Profile Ordered. EDMS 10:44 CBC with Diff Ordered. EDMS 10:44 Lipase Ordered. EDMS 10:44 Liver Profile Ordered. EDMS 10:44 Urinalysis Ordered. EDMS 10:44 Urine Culture Ordered. EDMS 10:44 NOTHING BY MOUTH+DIET ordered. EDMS 10:51 Hcg, Serum Quantitative Ordered. EDMS 10:52 Ultrasound 1st Trimester Ordered. EDMS 10:52 Type & Screen Ordered. EDMS 10:55 [facility] [place] Agreement was scanned into BEETmobile and attached to record. lg 11:35 TRANSVAGINAL US Ordered. EDMS 11:35 DUPLEX SCAN LIMITED (DOPPLER) Ordered. EDMS 11:51 Basic Metabolic Profile Reviewed. ef1 11:51 CBC with Diff Reviewed. ef1 11:51 Liver Profile Reviewed. ef1 11:51 Urinalysis Reviewed. ef1 11:51 Amylase Reviewed. ef1 11:51 Lipase Reviewed. ef1 11:51 Hcg, Serum Quantitative Reviewed. ef1 11:51 Type & Screen Reviewed. ef1 13:14 Nitrofurantoin 100 mg PO once ordered. ef1 14:26 T-Sheet-- Draft Copy was scanned into BEETmobile and attached to record. gb 14:26 Radiology Report was scanned into BEETmobile and attached to record. gb Point of Care Testing: Urine : 10:51 hCG Reading: Positive; Control Reading: Positive; kr3 Ranges: Administered Medications: 10:46 CANCELLED (Duplicate Order): NS 0.9% 1000 ml IV at bolus once dsf 10:52 Drug: NS 0.9% 1000 ml [sodium chloride 0.9 % injection solution] Route: IV; Rate: dsf bolus; Site: left antecubital; 13:22 Follow up: IV Status: Infusion discontinued; IV Intake: 600ml dsf 10:53 Drug: Metoclopramide 10 mg [metoclopramide 5 mg/mL injection solution] Route: IV; Rate: dsf 40 mg/hr; Infused Over: 15 mins; Site: left antecubital; 11:32 Follow up: IV Status: Completed infusion srm 13:22 Follow up: IV Status: Completed infusion; IV Intake: 10ml dsf 13:22 Drug: Nitrofurantoin 100 mg Route: PO; dsf Signatures: Dispatcher MedHost EDSebastian Brunson, RN RN dwg Smitha Bruno, Reg Reg gb Micheline Quevedo, Reg Reg lg Valentina Ernandez, PAGabyC PAEdna ef1 Shiloh Whiting RN RN dsf Hallie Damon RN srm The chart was reviewed and I authenticate all verbal orders and agree with the evaluation and treatment provided.Corrections: (The following items were deleted from the chart) 10:46 10:43 NS 0.9% 1000 ml IV at bolus once ordered. ef1 dsf Attachments: 10:55 [facility] Payment Agreement lg 14:26 T-Sheet-- Draft Copy Chart Complete MTDD
--- NOTE | 2016-03-14 20:09 | EDDOCDS ---
Physician Documentation [facility] Name: Flori Ramírez Age: 20 yrs Sex: Female : 1995 Arrival Date: 03/11/2016 Time: 10:16 Bed I4 / M4 Private MD: Other - Complete Info On Cds Disposition: 03/11/16 13:15 Discharged to Home/Self Care. Impression: Encounter for test, result positive - Early vs Missed on U/S, Urinary tract infection, site not specified, Nausea and vomiting. - Condition is Stable. - Discharge Instructions: Medicines During , First Trimester of , Xwxn-fj-Fupi, Nausea and Vomiting, Pkrh-wx-Woxc, Urinary Tract Infection, Ndbp-ua-Jepx. - Prescriptions for Reglan 10 mg Oral Tablet - take 1 tablet by ORAL route every 6 hours take 30 minutes before meals and at bedtime; 20 tablet. Macrobid 100 mg Oral Capsule - take 100 milligram by ORAL route every 12 hours for 10 days; 20 capsule. - Medication Reconciliation, Local Pharmacy Hours form. - Follow up: [facility] [place]; When: 1 - 2 days; Reason: Further diagnostic work-up, Recheck today's complaints, Continuance of care. Follow up: Emergency Department; Reason: Worsening of conditions. - Problem is new. - Symptoms have improved. Historical: - Allergies: no known allergies; - Home Meds: 1. none - PMHx: none; - PSHx: Adenoidectomy; Tonsillectomy; D & C; - Social history: Smoking status: Patient states former smoker of tobacco. No barriers to communication noted, The patient speaks fluent Mosotho. - Family history: Not pertinent. - : The pt / caregiver states he / she is not on anticoagulants. Home medication list is obtained from the patient. - Exposure Risk Screening:: None identified. 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 5 in. (165.10 cm) (R); Pain 0/10; 13:18 BP 121 / 70; Pulse 80; Resp 18; Temp 98.2; Pulse Ox 99% ; Pain 0/10; jam1 10:19 Body Mass Index 37.44 (102.06 kg, 165.10 cm) mt4 MDM: 10:37 Financial registration complete. lg 10:43 NS 0.9% 1000 ml IV at bolus once ordered. ef1 10:43 IV Saline Lock ordered. ef1 10:43 Undress patient appropriately for examination ordered. ef1 10:43 UCG by Nursing ordered. ef1 10:43 Metoclopramide 10 mg IV at 40 mg/hr once over 15 mins ordered. ef1 10:44 Amylase Ordered. EDMS 10:44 Basic Metabolic Profile Ordered. EDMS 10:44 CBC with Diff Ordered. EDMS 10:44 Lipase Ordered. EDMS 10:44 Liver Profile Ordered. EDMS 10:44 Urinalysis Ordered. EDMS 10:44 Urine Culture Ordered. EDMS 10:44 NOTHING BY MOUTH+DIET ordered. EDMS 10:51 Hcg, Serum Quantitative Ordered. EDMS 10:52 Ultrasound 1st Trimester Ordered. EDMS 10:52 Type & Screen Ordered. EDMS 10:55 [facility] [place] [place] Payment Agreement was scanned into Gra[employer] and attached to record. lg 11:35 TRANSVAGINAL US Ordered. EDMS 11:35 DUPLEX SCAN LIMITED (DOPPLER) Ordered. EDMS 11:51 Basic Metabolic Profile Reviewed. ef1 11:51 CBC with Diff Reviewed. ef1 11:51 Liver Profile Reviewed. ef1 11:51 Urinalysis Reviewed. ef1 11:51 Amylase Reviewed. ef1 11:51 Lipase Reviewed. ef1 11:51 Hcg, Serum Quantitative Reviewed. ef1 11:51 Type & Screen Reviewed. ef1 13:14 Nitrofurantoin 100 mg PO once ordered. ef1 14:26 T-Sheet-- Draft Copy was scanned into Graffiti and attached to record. gb 14:26 Radiology Report was scanned into Graffiti and attached to record. gb Point of Care Testing: Urine : 10:51 hCG Reading: Positive; Control Reading: Positive; kr3 Ranges: Administered Medications: 10:46 CANCELLED (Duplicate Order): NS 0.9% 1000 ml IV at bolus once dsf 10:52 Drug: NS 0.9% 1000 ml [sodium chloride 0.9 % injection solution] Route: IV; Rate: dsf bolus; Site: left antecubital; 13:22 Follow up: IV Status: Infusion discontinued; IV Intake: 600ml dsf 10:53 Drug: Metoclopramide 10 mg [metoclopramide 5 mg/mL injection solution] Route: IV; Rate: dsf 40 mg/hr; Infused Over: 15 mins; Site: left antecubital; 11:32 Follow up: IV Status: Completed infusion srm 13:22 Follow up: IV Status: Completed infusion; IV Intake: 10ml dsf 13:22 Drug: Nitrofurantoin 100 mg Route: PO; dsf Addendum: 03/14/2016 20:07 Radiology Callback: Radiology results faxed to primary care physician/provider. ft drum ml ob faxed formal report of pelvic us for fu mlg. Signatures: Dispatcher MedHost EDMarco Manjarrez MD MD ml Greene, Daniel, RN RN dwg Smitha Bruno, Reg Reg gb Micheline Quevedo, Reg Reg lg Valentina Ernandez, PA-C PA-C ef1 Shiloh Whiting RN RN dsf Hallie Damon RN srm The chart was reviewed and I authenticate all verbal orders and agree with the evaluation and treatment provided.Corrections: (The following items were deleted from the chart) 03/11 10:46 10:43 NS 0.9% 1000 ml IV at bolus once ordered. ef1 dsf Attachments: 10:55 [facility] Payment Agreement lg 14:26 T-Sheet-- Draft Copy gb Chart Complete MTDD
--- NOTE | 2016-03-14 20:09 | EDDOCDS ---
Physician Documentation [facility] Name: Flori Ramírez Age: 20 yrs Sex: Female : 1995 Arrival Date: 03/11/2016 Time: 10:16 Bed I4 / M4 Private MD: Other - Complete Info On Cds Disposition: 03/11/16 13:15 Discharged to Home/Self Care. Impression: Encounter for test, result positive - Early vs Missed on U/S, Urinary tract infection, site not specified, Nausea and vomiting. - Condition is Stable. - Discharge Instructions: Medicines During , First Trimester of , Bcgr-sp-Yraq, Nausea and Vomiting, Gjfn-pi-Ixhr, Urinary Tract Infection, Qkjs-yi-Bdfh. - Prescriptions for Reglan 10 mg Oral Tablet - take 1 tablet by ORAL route every 6 hours take 30 minutes before meals and at bedtime; 20 tablet. Macrobid 100 mg Oral Capsule - take 100 milligram by ORAL route every 12 hours for 10 days; 20 capsule. - Medication Reconciliation, Local Pharmacy Hours form. - Follow up: [facility] [place]; When: 1 - 2 days; Reason: Further diagnostic work-up, Recheck today's complaints, Continuance of care. Follow up: Emergency Department; Reason: Worsening of conditions. - Problem is new. - Symptoms have improved. Historical: - Allergies: no known allergies; - Home Meds: 1. none - PMHx: none; - PSHx: Adenoidectomy; Tonsillectomy; D & C; - Social history: Smoking status: Patient states former smoker of tobacco. No barriers to communication noted, The patient speaks fluent Irish. - Family history: Not pertinent. - : The pt / caregiver states he / she is not on anticoagulants. Home medication list is obtained from the patient. - Exposure Risk Screening:: None identified. 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 5 in. (165.10 cm) (R); Pain 0/10; 13:18 BP 121 / 70; Pulse 80; Resp 18; Temp 98.2; Pulse Ox 99% ; Pain 0/10; jam1 10:19 Body Mass Index 37.44 (102.06 kg, 165.10 cm) mt4 MDM: 10:37 Financial registration complete. lg 10:43 NS 0.9% 1000 ml IV at bolus once ordered. ef1 10:43 IV Saline Lock ordered. ef1 10:43 Undress patient appropriately for examination ordered. ef1 10:43 UCG by Nursing ordered. ef1 10:43 Metoclopramide 10 mg IV at 40 mg/hr once over 15 mins ordered. ef1 10:44 Amylase Ordered. EDMS 10:44 Basic Metabolic Profile Ordered. EDMS 10:44 CBC with Diff Ordered. EDMS 10:44 Lipase Ordered. EDMS 10:44 Liver Profile Ordered. EDMS 10:44 Urinalysis Ordered. EDMS 10:44 Urine Culture Ordered. EDMS 10:44 NOTHING BY MOUTH+DIET ordered. EDMS 10:51 Hcg, Serum Quantitative Ordered. EDMS 10:52 Ultrasound 1st Trimester Ordered. EDMS 10:52 Type & Screen Ordered. EDMS 10:55 [facility] [place] Agreement was scanned into Paperlinks and attached to record. lg 11:35 TRANSVAGINAL US Ordered. EDMS 11:35 DUPLEX SCAN LIMITED (DOPPLER) Ordered. EDMS 11:51 Basic Metabolic Profile Reviewed. ef1 11:51 CBC with Diff Reviewed. ef1 11:51 Liver Profile Reviewed. ef1 11:51 Urinalysis Reviewed. ef1 11:51 Amylase Reviewed. ef1 11:51 Lipase Reviewed. ef1 11:51 Hcg, Serum Quantitative Reviewed. ef1 11:51 Type & Screen Reviewed. ef1 13:14 Nitrofurantoin 100 mg PO once ordered. ef1 14:26 T-Sheet-- Draft Copy was scanned into Paperlinks and attached to record. gb 14:26 Radiology Report was scanned into Paperlinks and attached to record. gb Point of Care Testing: Urine : 10:51 hCG Reading: Positive; Control Reading: Positive; kr3 Ranges: Administered Medications: 10:46 CANCELLED (Duplicate Order): NS 0.9% 1000 ml IV at bolus once dsf 10:52 Drug: NS 0.9% 1000 ml [sodium chloride 0.9 % injection solution] Route: IV; Rate: dsf bolus; Site: left antecubital; 13:22 Follow up: IV Status: Infusion discontinued; IV Intake: 600ml dsf 10:53 Drug: Metoclopramide 10 mg [metoclopramide 5 mg/mL injection solution] Route: IV; Rate: dsf 40 mg/hr; Infused Over: 15 mins; Site: left antecubital; 11:32 Follow up: IV Status: Completed infusion srm 13:22 Follow up: IV Status: Completed infusion; IV Intake: 10ml dsf 13:22 Drug: Nitrofurantoin 100 mg Route: PO; dsf Addendum: 03/14/2016 20:07 Radiology Callback: Radiology results faxed to primary care physician/provider. ft drum ml ob faxed formal report of pelvic us for fu mlg. Signatures: Dispatcher MedHost EDMarco Manjarrez MD MD ml Greene, Daniel, RN RN dwg Smitha Bruno, Reg Reg gb Micheline Quevedo, Reg Reg lg Valentina Ernandez, PA-C PA-C ef1 Shiloh Whiting RN RN dsf Hallie Damon RN srm The chart was reviewed and I authenticate all verbal orders and agree with the evaluation and treatment provided.Corrections: (The following items were deleted from the chart) 03/11 10:46 10:43 NS 0.9% 1000 ml IV at bolus once ordered. ef1 dsf Attachments: 10:55 [facility] Payment Agreement lg 14:26 T-Sheet-- Draft Copy gb MTDD
--- NOTE | 2016-03-14 20:09 | EDDOCDS ---
Physician Documentation [facility] Name: Flori Ramírez Age: 20 yrs Sex: Female : 1995 Arrival Date: 03/11/2016 Time: 10:16 Bed I4 / M4 Private MD: Other - Complete Info On Cds Disposition: 03/11/16 13:15 Discharged to Home/Self Care. Impression: Encounter for test, result positive - Early vs Missed on U/S, Urinary tract infection, site not specified, Nausea and vomiting. - Condition is Stable. - Discharge Instructions: Medicines During , First Trimester of , Oasa-cx-Ciui, Nausea and Vomiting, Xvlx-nj-Btls, Urinary Tract Infection, Dpzs-ko-Cvem. - Prescriptions for Reglan 10 mg Oral Tablet - take 1 tablet by ORAL route every 6 hours take 30 minutes before meals and at bedtime; 20 tablet. Macrobid 100 mg Oral Capsule - take 100 milligram by ORAL route every 12 hours for 10 days; 20 capsule. - Medication Reconciliation, Local Pharmacy Hours form. - Follow up: [facility] [place]; When: 1 - 2 days; Reason: Further diagnostic work-up, Recheck today's complaints, Continuance of care. Follow up: Emergency Department; Reason: Worsening of conditions. - Problem is new. - Symptoms have improved. Historical: - Allergies: no known allergies; - Home Meds: 1. none - PMHx: none; - PSHx: Adenoidectomy; Tonsillectomy; D & C; - Social history: Smoking status: Patient states former smoker of tobacco. No barriers to communication noted, The patient speaks fluent Spanish. - Family history: Not pertinent. - : The pt / caregiver states he / she is not on anticoagulants. Home medication list is obtained from the patient. - Exposure Risk Screening:: None identified. 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 5 in. (165.10 cm) (R); Pain 0/10; 13:18 BP 121 / 70; Pulse 80; Resp 18; Temp 98.2; Pulse Ox 99% ; Pain 0/10; jam1 10:19 Body Mass Index 37.44 (102.06 kg, 165.10 cm) mt4 MDM: 10:37 Financial registration complete. lg 10:43 NS 0.9% 1000 ml IV at bolus once ordered. ef1 10:43 IV Saline Lock ordered. ef1 10:43 Undress patient appropriately for examination ordered. ef1 10:43 UCG by Nursing ordered. ef1 10:43 Metoclopramide 10 mg IV at 40 mg/hr once over 15 mins ordered. ef1 10:44 Amylase Ordered. EDMS 10:44 Basic Metabolic Profile Ordered. EDMS 10:44 CBC with Diff Ordered. EDMS 10:44 Lipase Ordered. EDMS 10:44 Liver Profile Ordered. EDMS 10:44 Urinalysis Ordered. EDMS 10:44 Urine Culture Ordered. EDMS 10:44 NOTHING BY MOUTH+DIET ordered. EDMS 10:51 Hcg, Serum Quantitative Ordered. EDMS 10:52 Ultrasound 1st Trimester Ordered. EDMS 10:52 Type & Screen Ordered. EDMS 10:55 [facility] [place] Payment Agreement was scanned into [employer] and attached to record. lg 11:35 TRANSVAGINAL US Ordered. EDMS 11:35 DUPLEX SCAN LIMITED (DOPPLER) Ordered. EDMS 11:51 Basic Metabolic Profile Reviewed. ef1 11:51 CBC with Diff Reviewed. ef1 11:51 Liver Profile Reviewed. ef1 11:51 Urinalysis Reviewed. ef1 11:51 Amylase Reviewed. ef1 11:51 Lipase Reviewed. ef1 11:51 Hcg, Serum Quantitative Reviewed. ef1 11:51 Type & Screen Reviewed. ef1 13:14 Nitrofurantoin 100 mg PO once ordered. ef1 14:26 T-Sheet-- Draft Copy was scanned into Digital [employer] and attached to record. gb 14:26 Radiology Report was scanned into Digital [employer] and attached to record. gb Point of Care Testing: Urine : 10:51 hCG Reading: Positive; Control Reading: Positive; kr3 Ranges: Administered Medications: 10:46 CANCELLED (Duplicate Order): NS 0.9% 1000 ml IV at bolus once dsf 10:52 Drug: NS 0.9% 1000 ml [sodium chloride 0.9 % injection solution] Route: IV; Rate: dsf bolus; Site: left antecubital; 13:22 Follow up: IV Status: Infusion discontinued; IV Intake: 600ml dsf 10:53 Drug: Metoclopramide 10 mg [metoclopramide 5 mg/mL injection solution] Route: IV; Rate: dsf 40 mg/hr; Infused Over: 15 mins; Site: left antecubital; 11:32 Follow up: IV Status: Completed infusion srm 13:22 Follow up: IV Status: Completed infusion; IV Intake: 10ml dsf 13:22 Drug: Nitrofurantoin 100 mg Route: PO; dsf Addendum: 03/14/2016 20:07 Radiology Callback: Radiology results faxed to primary care physician/provider. ft drum ml ob faxed formal report of pelvic us for fu mlg. Signatures: Dispatcher MedHost EDMarco Manjarrez MD MD ml Greene, Daniel, RN RN dwg Smitha Bruno, Reg Reg gb Micheline Quevedo, Reg Reg lg Valentina Ernandez, PA-C PA-C ef1 Shiloh Whiting RN RN dsf Hallie Damon RN srm The chart was reviewed and I authenticate all verbal orders and agree with the evaluation and treatment provided.Corrections: (The following items were deleted from the chart) 03/11 10:46 10:43 NS 0.9% 1000 ml IV at bolus once ordered. ef1 dsf Attachments: 10:55 [facility] Payment Agreement lg 14:26 T-Sheet-- Draft Copy gb MTDD
--- NOTE | 2016-03-14 20:10 | EDDOCDS ---
Physician Documentation [facility] Name: Flori Ramírez Age: 20 yrs Sex: Female : 1995 Arrival Date: 03/11/2016 Time: 10:16 Bed I4 / M4 Private MD: Other - Complete Info On Cds Disposition: 03/11/16 13:15 Discharged to Home/Self Care. Impression: Encounter for test, result positive - Early vs Missed on U/S, Urinary tract infection, site not specified, Nausea and vomiting. - Condition is Stable. - Discharge Instructions: Medicines During , First Trimester of , Zzen-ai-Jzco, Nausea and Vomiting, Yqrk-er-Tamj, Urinary Tract Infection, Rfob-ca-Uznu. - Prescriptions for Reglan 10 mg Oral Tablet - take 1 tablet by ORAL route every 6 hours take 30 minutes before meals and at bedtime; 20 tablet. Macrobid 100 mg Oral Capsule - take 100 milligram by ORAL route every 12 hours for 10 days; 20 capsule. - Medication Reconciliation, Local Pharmacy Hours form. - Follow up: [facility] [place]; When: 1 - 2 days; Reason: Further diagnostic work-up, Recheck today's complaints, Continuance of care. Follow up: Emergency Department; Reason: Worsening of conditions. - Problem is new. - Symptoms have improved. Historical: - Allergies: no known allergies; - Home Meds: 1. none - PMHx: none; - PSHx: Adenoidectomy; Tonsillectomy; D & C; - Social history: Smoking status: Patient states former smoker of tobacco. No barriers to communication noted, The patient speaks fluent Malian. - Family history: Not pertinent. - : The pt / caregiver states he / she is not on anticoagulants. Home medication list is obtained from the patient. - Exposure Risk Screening:: None identified. 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 5 in. (165.10 cm) (R); Pain 0/10; 13:18 BP 121 / 70; Pulse 80; Resp 18; Temp 98.2; Pulse Ox 99% ; Pain 0/10; jam1 10:19 Body Mass Index 37.44 (102.06 kg, 165.10 cm) mt4 MDM: 10:37 Financial registration complete. lg 10:43 NS 0.9% 1000 ml IV at bolus once ordered. ef1 10:43 IV Saline Lock ordered. ef1 10:43 Undress patient appropriately for examination ordered. ef1 10:43 UCG by Nursing ordered. ef1 10:43 Metoclopramide 10 mg IV at 40 mg/hr once over 15 mins ordered. ef1 10:44 Amylase Ordered. EDMS 10:44 Basic Metabolic Profile Ordered. EDMS 10:44 CBC with Diff Ordered. EDMS 10:44 Lipase Ordered. EDMS 10:44 Liver Profile Ordered. EDMS 10:44 Urinalysis Ordered. EDMS 10:44 Urine Culture Ordered. EDMS 10:44 NOTHING BY MOUTH+DIET ordered. EDMS 10:51 Hcg, Serum Quantitative Ordered. EDMS 10:52 Ultrasound 1st Trimester Ordered. EDMS 10:52 Type & Screen Ordered. EDMS 10:55 [facility] Payment Agreement was scanned into [employer] and attached to record. lg 11:35 TRANSVAGINAL US Ordered. EDMS 11:35 DUPLEX SCAN LIMITED (DOPPLER) Ordered. EDMS 11:51 Basic Metabolic Profile Reviewed. ef1 11:51 CBC with Diff Reviewed. ef1 11:51 Liver Profile Reviewed. ef1 11:51 Urinalysis Reviewed. ef1 11:51 Amylase Reviewed. ef1 11:51 Lipase Reviewed. ef1 11:51 Hcg, Serum Quantitative Reviewed. ef1 11:51 Type & Screen Reviewed. ef1 13:14 Nitrofurantoin 100 mg PO once ordered. ef1 14:26 T-Sheet-- Draft Copy was scanned into [employer] and attached to record. gb 14:26 Radiology Report was scanned into [employer] and attached to record. gb Point of Care Testing: Urine : 10:51 hCG Reading: Positive; Control Reading: Positive; kr3 Ranges: Administered Medications: 10:46 CANCELLED (Duplicate Order): NS 0.9% 1000 ml IV at bolus once dsf 10:52 Drug: NS 0.9% 1000 ml [sodium chloride 0.9 % injection solution] Route: IV; Rate: dsf bolus; Site: left antecubital; 13:22 Follow up: IV Status: Infusion discontinued; IV Intake: 600ml dsf 10:53 Drug: Metoclopramide 10 mg [metoclopramide 5 mg/mL injection solution] Route: IV; Rate: dsf 40 mg/hr; Infused Over: 15 mins; Site: left antecubital; 11:32 Follow up: IV Status: Completed infusion srm 13:22 Follow up: IV Status: Completed infusion; IV Intake: 10ml dsf 13:22 Drug: Nitrofurantoin 100 mg Route: PO; dsf Addendum: 03/14/2016 20:07 Radiology Callback: Radiology results faxed to primary care physician/provider. ft drum ml ob faxed formal report of pelvic us for fu mlg. Signatures: Dispatcher [employer] EDMarco Manjarrez MD MD ml Greene, Daniel, RN RN dwg Smitha Bruno, Reg Reg gb Micheline Quevedo, Reg Reg lg Valentina Ernandez, PA-C PA-C ef1 Shiloh Whiting RN RN dsf Hallie Damon RN srm The chart was reviewed and I authenticate all verbal orders and agree with the evaluation and treatment provided.Corrections: (The following items were deleted from the chart) 03/11 10:46 10:43 NS 0.9% 1000 ml IV at bolus once ordered. ef1 dsf Attachments: 10:55 [facility] Payment Agreement lg 14:26 T-Sheet-- Draft Copy gb Chart Complete MTDD
--- NOTE | 2016-03-14 20:10 | EDDOCDS ---
Nurse's Notes [facility] Name: Flori Ramírez Age: 20 yrs Sex: Female : 1995 Arrival Date: 03/11/2016 Time: 10:16 Bed I4 / M4 Private MD: Other - Complete Info On Cds Diagnosis: Encounter for test, result positive-Early vs Missed on U/S;Urinary tract infection, site not specified;Nausea and vomiting Presentation: 03/11 10:22 Presenting complaint: Patient states: Multiple complaints, nausea/vomiting for 3-4 dwg days, headaches, dizziness, also states has had 4 positive tests at home. Adult Sepsis Screening: The patient does not have new or worsening altered mentation. Patient's respiratory rate is less than 22. Systolic blood pressure is greater than 100. Patient has a qSOFA score of 0- Negative Sepsis Screen. Suicide/Homicide risk assessment- the patient denies having any suicidal and/or homicidal ideations and does not present with any other emotional, behavioral or mental health complaints. Status: The patient is a dependent. Transition of care: patient was not received from another setting of care. 10:22 Acuity: RAFA Level 3 dwg 10:22 Method Of Arrival: Walkin/Carried/Asstd dwg Triage Assessment: 10:24 General: Appears in no apparent distress. Pain: Pain currently is 0 out of 10 on a pain dwg scale. HIV screening NA for this visit Offered previously. 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 none - PMHx: none; - PSHx: Adenoidectomy; Tonsillectomy; D & C; - Social history: Smoking status: Patient states former smoker of tobacco. No barriers to communication noted, The patient speaks fluent Slovak. - Family history: Not pertinent. - : The pt / caregiver states he / she is not on anticoagulants. Home medication list is obtained from the patient. - Exposure Risk Screening:: None identified. Screenin:30 Screening information is obtained from the patient. Primary language is Slovak. Fall jam1 risk: No risks identified. Assistance ADL's: requires no assistance with activities of daily living. Abuse/DV Screen: The patient / caregiver reports he/she is: not in a situation that causes fear, pain or injury. Nutritional screening: No deficits noted. Exposure Risk Screening: None identified. Advance Directives: Currently, there is no health care proxy. There is no active DNR order. There is no living will. There is no Power of Quilt Maker. Advance directive information has not previously been placed in an [facility] medical record. Further advance directive information is declined. home support is adequate. Assessment: 10:56 General: Appears in no apparent distress, Behavior is appropriate for age, cooperative. srm Neurological: No deficits noted. EENT: No deficits noted. Respiratory: Airway is patent Respiratory effort is even, unlabored, Breath sounds are clear bilaterally. GI: Abdomen is non- distended Bowel sounds present X 4 quads. Abd is soft and non tender X 4 quads. Derm: No deficits noted. 11:32 General: Appears in no apparent distress, Behavior is appropriate for age, cooperative, srm at bedside. Neurological: No deficits noted. EENT: No deficits noted. Cardiovascular: No deficits noted. GI: No deficits noted. : No deficits noted. Musculoskeletal: No deficits noted. 12:15 Adult Sepsis Screening: The patient does not have new or worsening altered mentation. dsf Patient's respiratory rate is less than 22. Systolic blood pressure is greater than 100. Patient has a qSOFA score of 0- Negative Sepsis Screen. General: Appears in no apparent distress, comfortable, Behavior is appropriate for age, cooperative. Pain: Denies pain. Neurological: Level of Consciousness is awake, alert. Cardiovascular: Capillary refill < 3 seconds. Respiratory: Airway is patent Respiratory effort is even, unlabored, Respiratory pattern is regular, symmetrical. GI: Denies nausea. Derm: Skin is pink, warm & dry. 13:25 Adult Sepsis Screening: The patient does not have new or worsening altered mentation. dsf Patient's respiratory rate is less than 22. Systolic blood pressure is greater than 100. Patient has a qSOFA score of 0- Negative Sepsis Screen. General: Appears in no apparent distress, comfortable, Behavior is appropriate for age, cooperative. Pain: Denies pain. Neurological: Level of Consciousness is awake, alert. Cardiovascular: Capillary refill < 3 seconds. Respiratory: Airway is patent Respiratory effort is even, unlabored, Respiratory pattern is regular, symmetrical. GI: Denies nausea. Derm: Skin is pink, warm & dry. Vital Signs: 10:19 BP 134 / 66 RA Sitting (auto/reg); Pulse 84; Resp 18 S; Temp 98.9(O); Pulse Ox 100% on mt4 R/A; Weight 102.06 kg (R); Height 5 ft. 5 in. (165.10 cm) (R); Pain 0/10; 13:18 BP 121 / 70; Pulse 80; Resp 18; Temp 98.2; Pulse Ox 99% ; Pain 0/10; jam1 10:19 Body Mass Index 37.44 (102.06 kg, 165.10 cm) mt4 Vitals: 10:19 Log In Time: March 11, 2016 at 10:16. mt4 ED Course: 10:18 Patient visited by Sophie Vasquez. mt4 10:18 Patient moved to Waiting mt4 10:19 Other - Complete Info On Cds is Private Physician. mt4 10:21 Patient moved to Pre RCE mt4 10:23 Triage Initiated dwg 10:25 Patient moved to Triage 1 dwg 10:28 Valentina Ernandez PA-C is PHCP. ef1 10:28 Lawrence Bartholomew MD is Attending Physician. ef1 10:28 Patient visited by Valentina Ernandez PA-C. ef1 10:46 Patient moved to I4 / M4 kr3 10:50 Patient visited by Valentina Ernandez PA-C. ef1 10:53 The patient / caregiver is instructed regarding the plan of care and ED course. Patient srm has correct armband on for positive identification. Placed in gown. Bed in low position. Call light in reach. 10:53 Inserted saline lock: 20 gauge in left antecubital area and blood collected. srm 10:55 [facility] Payment Agreement was scanned into [employer] and attached to record. lg 10:57 Patient visited by Hallie Damon RN. srm 10:57 Type & Screen Sent. srm 10:57 Hcg, Serum Quantitative Sent. srm 10:57 Amylase Sent. srm 10:57 Basic Metabolic Profile Sent. srm 10:57 CBC with Diff Sent. srm 10:57 Liver Profile Sent. srm 10:57 Lipase Sent. srm 10:57 Urinalysis Sent. srm 10:57 Urine Culture Sent. srm 11:11 Patient name changed from Flori\S\Abbi\S\Loera\S\ to Flori\S\Abbi\S\Ramírez. EDMS 11:33 Patient visited by Hallie Damon RN. srm 11:51 Patient visited by Valentina Ernandez PA-C. ef1 12:16 Patient visited by Shiloh Whiting RN. dsf 12:29 Patient has correct armband on for positive identification. Bed in low position. Call jam1 light in reach. Side rails up X 1. Door closed. 13:02 Patient visited by Valentina Ernandez PA-C. ef1 13:15 [place], OB is Referral Physician. ef1 13:25 Discontinued lock intact, bleeding controlled, pressure dressing applied, No dsf redness/swelling at site. No procedures done that require assistance. 14:26 T-Sheet-- Draft Copy was scanned into [employer] and attached to record. gb 14:26 Radiology Report was scanned into [employer] and attached to record. gb 22:57 Ultrasound 1st Trimester Returned. EDMS Administered Medications: 10:46 CANCELLED (Duplicate Order): NS 0.9% 1000 ml IV at bolus once dsf 10:52 Drug: NS 0.9% 1000 ml [sodium chloride 0.9 % injection solution] Route: IV; Rate: dsf bolus; Site: left antecubital; 13:22 Follow up: IV Status: Infusion discontinued; IV Intake: 600ml dsf 10:53 Drug: Metoclopramide 10 mg [metoclopramide 5 mg/mL injection solution] Route: IV; Rate: dsf 40 mg/hr; Infused Over: 15 mins; Site: left antecubital; 11:32 Follow up: IV Status: Completed infusion [facility] 13:22 Follow up: IV Status: Completed infusion; IV Intake: 10ml dsf 13:22 Drug: Nitrofurantoin 100 mg Route: PO; dsf Point of Care Testing: Urine : 10:51 hCG Reading: Positive; Control Reading: Positive; kr3 Ranges: Intake: 13:22 IV: 10.00ml; Total: 10.00ml. dsf 13:22 IV: 600.00ml; Total: 610.00ml. dsf Order Results: Lab Order: Amylase; SPEC'M 03/11/16 10:52 Test: AMYLASE; Value: 53; Range: 25-115; Units: U/L; Status: F Lab Order: Basic Metabolic Profile; SPEC'M 03/11/16 10:52 Test: GLUCOSE, FASTING; Value: 91; Range: 70-105; Units: MG/DL; Status: F Test: BLOOD UREA NITROGEN; Value: 12; Range: 7-18; Units: MG/DL; Status: F Test: CREATININE FOR GFR; Value: 0.80; Range: 0.55-1.02; Units: MG/DL; Status: F Test: SODIUM LEVEL; Value: 141; Range: 136-145; Units: MEQ/L; Status: F Test: POTASSIUM SERUM; Value: 4.0; Range: 3.5-5.1; Units: MEQ/L; Status: F Test: CHLORIDE LEVEL; Value: 109; Range: 98-107; Abnormal: Above high normal; Units: MEQ/L; Status: F Test: CARBON DIOXIDE LEVEL; Value: 22; Range: 21-32; Units: MEQ/L; Status: F Test: ANION GAP; Value: 10; Range: 8-16; Units: MEQ/L; Status: F Test: CALCIUM LEVEL; Value: 9.2; Range: 8.5-10.1; Units: MG/DL; Status: F Lab Order: CBC with Diff; SPEC'M 03/11/16 10:52 Test: WHITE BLOOD COUNT; Value: 11.8; Range: 4.0-10.0; Abnormal: Above high normal; Units: K/mm3; Status: F Test: RED BLOOD COUNT; Value: 4.94; Range: 4.00-5.40; Units: M/mm3; Status: F Test: HEMOGLOBIN; Value: 13.8; Range: 12.0-16.0; Units: g/dl; Status: F Test: HEMATOCRIT; Value: 40.4; Range: 36.0-47.0; Units: %; Status: F Test: MEAN CORPUSCULAR VOLUME; Value: 81.9; Range: 80.0-96.0; Units: fl; Status: F Test: MEAN CORPUSCULAR HEMOGLOBIN; Value: 27.9; Range: 27.0-33.0; Units: pg; Status: F Test: MEAN CORPUSCULAR HGB CONC; Value: 34.0; Range: 32.0-36.5; Units: g/dl; Status: F Test: RED CELL DISTRIBUTION WIDTH; Value: 13.6; Range: 11.5-14.5; Units: %; Status: F Test: PLATELET COUNT, AUTOMATED; Value: 240; Range: 150-450; Units: k/mm3; Status: F Test: NEUTROPHILS %; Value: 75.7; Range: 36.0-66.0; Abnormal: Above high normal; Units: %; Status: F Test: LYMPH %; Value: 18.8; Range: 24.0-44.0; Abnormal: Below low normal; Units: %; Status: F Test: MONO %; Value: 3.1; Range: 0.0-5.0; Units: %; Status: F Test: EOS %; Value: 1.1; Range: 0.0-3.0; Units: %; Status: F Test: BASO %; Value: 0.4; Range: 0.0-1.0; Units: %; Status: F Test: LARGE UNSTAINED CELL %; Value: 0.9; Range: 0.0-4.0; Units: %; Status: F Test: NEUTROPHILS #; Value: 9.0; Range: 1.8-7.7; Abnormal: Above high normal; Units: K/mm3; Status: F Test: LYMPH #; Value: 2.2; Range: 1.5-6.5; Units: K/mm3; Status: F Test: MONO #; Value: 0.4; Range: 0.0-0.8; Units: K/mm3; Status: F Test: EOS #; Value: 0.1; Range: 0.0-0.50; Units: K/mm3; Status: F Test: BASO #; Value: 0.0; Range: 0.0-0.2; Units: K/mm3; Status: F Test: LARGE UNSTAINED CELL #; Value: 0.1; Range: 0.0-0.4; Units: K/mm3; Status: F Lab Order: Lipase; SPEC'M 03/11/16 10:52 Test: LIPASE; Value: 114; Range: 73-393; Units: U/L; Status: F Lab Order: Liver Profile; SPEC'M 03/11/16 10:52 Test: AST/SGOT; Value: 13; Range: 15-37; Abnormal: Below low normal; Units: U/L; Status: F Test: ALT/SGPT; Value: 23; Range: 12-78; Units: U/L; Status: F Test: ALKALINE PHOSPHATASE; Value: 111; Range: 45-117; Units: U/L; Status: F Test: BILIRUBIN,TOTAL; Value: 0.4; Range: 0.2-1.0; Units: MG/DL; Status: F Test: BILIRUBIN,DIRECT; Value: 0.1; Range: 0.0-0.2; Units: MG/DL; Status: F Test: TOTAL PROTEIN; Value: 8.0; Range: 6.4-8.2; Units: GM/DL; Status: F Test: ALBUMIN; Value: 3.9; Range: 3.2-5.2; Units: GM/DL; Status: F Test: ALBUMIN/GLOBULIN RATIO; Value: 0.95; Range: 1.00-1.93; Abnormal: Below low normal; Status: F Lab Order: Urinalysis; [facility] 03/11/16 10:52 Test: APPEARANCE, URINE; Value: CLOUDY; Range: CLEAR; Abnormal: Above high normal; Status: F Test: COLOR, URINE; Value: YELLOW; Range: YELLOW; Status: F Test: PH,URINE; Value: 5.0; Range: 5.0-9.0; Units: UNITS; Status: F Test: SPECIFIC GRAVITY URINE AUTO; Value: 1.029; Range: 1.002-1.035; Status: F Test: PROTEIN, URINE AUTO; Value: 1+; Range: NEGATIVE; Abnormal: Above high normal; Units: mg/dL; Status: F Test: GLUCOSE, URINE (UA) AUTO; Value: NEGATIVE; Range: NEGATIVE; Units: mg/dL; Status: F Test: KETONE, URINE AUTO; Value: NEGATIVE; Range: NEGATIVE; Units: mg/dL; Status: F Test: UROBILINOGEN, URINE AUTO; Value: 0.2; Range: 0.0-2.0; Units: mg/dL; Status: F Test: BILIRUBIN, URINE AUTO; Value: NEGATIVE; Range: NEGATIVE; Status: F Test: NITRITE, URINE AUTO; Value: NEGATIVE; Range: NEGATIVE; Status: F Test: LEUKOCYTE ESTERASE, URINE AUTO; Value: 2+; Range: NEGATIVE; Abnormal: Above high normal; Status: F Test: BLOOD, URINE BLOOD; Value: NEGATIVE; Range: NEGATIVE; Status: F Test: WBC, URINE AUTO; Value: 14; Range: 0-3; Abnormal: Above high normal; Units: /HPF; Status: F Test: RBC, URINE AUTO; Value: 4; Range: 0-3; Abnormal: Above high normal; Units: /HPF; Status: F Test: BACTERIA, URINE AUTO; Value: NEGATIVE; Range: NEGATIVE; Status: F Test: SQUAMOUS EPITHELIAL CELL UR AU; Value: 11; Range: 0-6; Units: /HPF; Status: F Test: MUCUS, URINE; Value: LARGE; Range: NEGATIVE; Status: F Test: HYALINE CAST, URINE AUTO; Value: 0; Range: 0-1; Units: /LPF; Status: F Lab Order: Urine Culture; SPEC' 03/11/16 10:52 Test: URINE CULTURE; Value: URINE CULTURE RESULT NO GROWTH; Status: F Lab Order: Hcg, Serum Quantitative; SPEC'M 03/11/16 10:52 Test: HCG, SERUM QUANTITATIVE; Value: 71; Units: MIU/ML; Status: F Test Note: ; GESTATIONAL AGE APPROXIMATE HCG RANGE (MIU/ML) 0.2-1 WEEK 5-50 1-2 WEEKS 50-500 2-3 WEEKS 100-5,000 3-4 WEEKS 500-10,000 4-5 WEEKS 1,000-50,000 5-6 WEEKS 10,000-100,000 6-8 WEEKS 15,000-200,000 2-3 MONTHS 10,000-100,000 NON FEMALES LESS THAN 3.0 Patient samples may contain human heterophilic antibodies that could react with immunoassays to give falsely elevated or depressed results. This assay has been designed to minimize interference from heterophilic antibodies. Elevated hCG levels have also been associated with trophoblastic disease and nontrophoblastic neoplasms. The possibility of having these diseases should be considered before a diagnosis of is made. This test is not intended for use as a surrogate marker for aiding in the diagnosis or monitoring the treatment of cancer patients. [employer] methodology. Lab Order: Type & Screen; SPEC'M 03/11/16 10:52 Test: BLOOD TYPE; Value: B POS; Status: F Test: AB SCREEN (INDIRECT PACO)GEL; Value: NEGATIVE; Status: F Radiology Order: Ultrasound 1st Trimester Test: Ultrasound 1st Trimester REASON FOR EXAMINATION: pelvic pain, ; First trimester OB ultrasound 03/11/2016; ; Indication: Pelvic pain, mid, positive urine test; ; Comparison: None; ; Date of last menstrual period: , corresponding to 9-aqvz-6-day; gestational age the patient is G3, P1, Ab 1; ; Findings: Uterus measures 8.7 x 4.6 x 5.8 cm. Endometrium is 8.7 mm in; thickness. There is no evidence of intrauterine gestational sac or pole.; ; Right ovary measures 4 x 3.1 x 3.4 cm and contains an involuting 1.3 cm corpus; luteum cyst. There are some prominent vessels in the region of the right adnexa.; ; Left ovary measures 3.9 x 2.1 x 3.3 cm. Perfusion is noted to the bilateral; ovaries, therefore no evidence of torsion.; ; There is a small amount of free fluid is seen adjacent to the right ovary.; ; Impression; ; ; Endometrium 8.7 mm in thickness and smooth. There is no intrauterine; gestational sac or pole. The differential diagnosis at this time includes; early intrauterine , and possibly missed . Ectopic ; cannot be completely excluded on the basis of this study.; ; Recommend correlation with serial quantitative beta HCG and follow-up OB; ultrasound to ensure a viable intrauterine .; ; ; ; ; Signed by; Fiordaliza Mtz MD 03/11/2016 10:46 P; Outcome: 13:15 Discharge ordered by Provider. ef1 13:25 Discharge Assessment: Patient awake, alert and oriented x 3. No cognitive and/or dsf functional deficits noted. Patient verbalized understanding of disposition instructions. patient administered narcotics - no. The following High Risk Discharge criteria are identified: None. Discharged to home ambulatory, with significant other. Condition: stable. Discharge instructions given to patient, Instructed on discharge instructions, follow up and referral plans. medication usage, Demonstrated understanding of instructions, medications, Pt was receptive of discharge instructions/ teaching. Prescriptions given X 2. Ultrasound Study completed. Property sent home with patient. 13:26 Patient left the ED. dsf Signatures: Dispatcher [employer] Sebastian Becker, RN RN Hallie Wellington RN RN srm Guerda Muro, NAYAN JOB RECRUITER jam1 Smitha Bruno, Reg Reg gb SarahMicheline mahajan, Reg Reg lg Rossana Santana,RN RN kr3 Sophie Vasquez mt4 Valentina Ernandez, PA-C PA-C ef1 Shiloh Whiting RN RN dsf Corrections: (The following items were deleted from the chart) 11:42 10:24 LMP 02/03/2016 luis sher Chart Complete MTDD
== END 2016-03-11 13:26 | disposition home or self-care (01) ==
LOC: M ED 10:16
DX: Z32.01 Encounter for pregnancy test, result positive (principal); N39.0 Urinary tract infection, site not specified; R10.9 Unspecified abdominal pain; R11.2 Nausea with vomiting, unspecified; Z87.891 Personal history of nicotine dependence
CPT/HCPCS: 36415; 76801; 76817; 80048; 80076; 81001; 81025; 82150; 83690; 84702; 85025; 86850; 86900; 86901; 87086; 93976; 96361; 96365; 99284; J2765

== ENCOUNTER 2016-05-08 07:22 | Emergency (ER) | payer OTHER ==
[~2016-05-08] VITALS: Ht 165.1 cm; Wt 97.1 kg
[2016-05-08] MEDS ORDERED: PREN1TAB11 PO (07:46)
[2016-05-08] MEDS ORDERED: NS 1,000 ML IV ONE (08:15)
[2016-05-08 09:11] LABS: BASO % 0.4 % (0.0-1.0); EOS # 0.1 K/mm3 (0.0-0.50); EOS % 1.1 % (0.0-3.0); LARGE UNSTAINED CELL # 0.1 K/mm3 (0.0-0.4); LARGE UNSTAINED CELL % 1.7 % (0.0-4.0); LYMPH # 1.2 K/mm3 (1.5-6.5); LYMPH % 21.4 % (24.0-44.0); MEAN CORPUSCULAR HEMOGLOBIN 27.8 pg (27.0-33.0); MEAN CORPUSCULAR HGB CONC 34.4 g/dl (32.0-36.5); MONO # 0.2 K/mm3 (0.0-0.8); MONO % 3.6 % (0.0-5.0); NEUTROPHILS # 4.1 K/mm3 (1.8-7.7); NEUTROPHILS % 71.8 % (36.0-66.0); PLATELET COUNT, AUTOMATED 235 k/mm3 (150-450); RED CELL DISTRIBUTION WIDTH 13.8 % (11.5-14.5); WHITE BLOOD COUNT 5.7 K/mm3 (4.0-10.0)
--- NOTE | 2016-05-08 09:23 | REP ---
FIRST TRIMESTER ULTRASOUND: Real-time sonographic evaluation of the gravid uterus performed utilizing transabdominal technique. There is a single living intrauterine gestation, estimated gestational age 13 weeks 1 day, EDC 11/12/2016. BPD 21 mm 13 weeks 3 days HC 80 mm 13 weeks 3 days AC 63 mm 13 weeks 0 days FL 10 mm 12 weeks 6 days HC/AC ratio 1.28 within normal range. Estimated weight 68 grams, 29th percentile. heart rate 165 beats per minute. Subchorionic hemorrhage is seen measuring 1.9 x 0.7 x 3.5 cm. No maternal adnexal region abnormality is seen with blood flow seen in the right ovary with duplex Doppler evaluation, with no torsion. Left ovary could not be visualized. Signed by Sebastian Rand MD 05/08/2016 12:57 P
[2016-05-08 09:51] LABS: ANION GAP 9 MEQ/L (8-16); BLOOD UREA NITROGEN 5 MG/DL (7-18); CALCIUM LEVEL 9.1 MG/DL (8.5-10.1); CARBON DIOXIDE LEVEL 23 MEQ/L (21-32); CHLORIDE LEVEL 102 MEQ/L (98-107); GLUCOSE, FASTING 103 MG/DL (70-105); HCG, SERUM QUANTITATIVE 64184 MIU/ML; POTASSIUM SERUM 3.8 MEQ/L (3.5-5.1); SODIUM LEVEL 134 MEQ/L (136-145)
[2016-05-08] MEDS ORDERED: metroNIDAZOLE (FLAGYL) 500 MG TAB PO ONE (10:30)
[2016-05-08] MEDS ORDERED: MACR100C3 PO (10:51)
[2016-05-08] MEDS ORDERED: FLAG500T PO (10:51)
[2016-05-08 11:04] VITALS: BP 122/70
== END 2016-05-08 11:06 | disposition home or self-care (01) ==
LOC: M ED 08:12
DX: O99.89 Other specified diseases and conditions complicating pregnancy, childbirth and the puerperium (principal); A59.03 Trichomonal cystitis and urethritis; N30.00 Acute cystitis without hematuria; Z3A.13 13 weeks gestation of pregnancy; Z79.899 Other long term (current) drug therapy

== ENCOUNTER 2016-06-15 08:20 | Emergency (ER) | payer OTHER ==
[~2016-06-15] VITALS: Ht 167.6 cm; Wt 111.6 kg
[~2016-06-15 08:20] MED LIST: FLAG500T PO; MACR100C3 PO; PREN1TAB11 PO
[2016-06-15] MEDS ORDERED: ONDANSETRON 4 MG ORAL DISINTEGRATING TAB (S0181) PO ONE (10:30)
[2016-06-15] MEDS ORDERED: ACETAMINOPHEN 325 MG TAB PO ONE (10:45)
[2016-06-15 11:08] VITALS: BP 134/76
== END 2016-06-15 11:10 | disposition left against medical advice (07) ==
LOC: M ED 09:45
DX: O23.42 Unspecified infection of urinary tract in pregnancy, second trimester (principal); Z3A.17 17 weeks gestation of pregnancy

== ENCOUNTER 2016-11-19 08:06 | Outpatient (CLI) | payer OTHER ==
[~2016-11-19] VITALS: Ht 165.1 cm; Wt 108.6 kg
[~2016-11-19 08:06] MED LIST changes: -MACR100C3 PO; +MACR100C43 PO
[2016-11-19 08:51] VITALS: BP 132/75
== END 2016-11-19 09:30 | disposition home or self-care (01) ==
LOC: M LDO 08:06
PROVIDERS: ATTEND Obstetrics & Gynecology
DX: O47.1 False labor at or after 37 completed weeks of gestation (principal); Z3A.39 39 weeks gestation of pregnancy; N89.8 Other specified noninflammatory disorders of vagina; O26.893 Other specified pregnancy related conditions, third trimester

== ENCOUNTER 2016-11-19 13:26 | Inpatient (IN) | payer OTHER ==
[2016-11-19] VITALS (25 sets, daily range): BP systolic 115–154; BP diastolic 59–91
[~2016-11-19] VITALS: Ht 165.1 cm; Wt 108.0 kg
[2016-11-19] MEDS ORDERED: LACTATED RINGER'S 1000 ML IV STA (14:30)
[2016-11-19] MEDS: LR 1,000 ML IV SCH ×2 (14:51→22:30)
[2016-11-19 14:59] LABS: MEAN CORPUSCULAR HGB CONC 33.2 g/dl (32.0-36.5); MEAN CORPUSCULAR VOLUME 81.4 fl (80.0-96.0); RED CELL DISTRIBUTION WIDTH 14.1 % (11.5-14.5); WHITE BLOOD COUNT 12.9 10^3/uL (4.0-10.0)
--- NOTE | 2016-11-19 15:03 | HPEPDOC ---
Obstetrical History & Physical General Date of Admission Nov 19, 2016 at 14:20 History of Present Illness 21 y/o at 39+6 with reg ctx's. Seen earlier today and sent home at 3 cm. No LOF/VB. Pos FM. Prob list: Pos chlamydia and Trich in MAR at [facility]. Both treated with neg AMANDA. Absent for care 20-36 weeks, was in [place] and had no PN care 2VC and EI focus, did not get grth scans as directed, one also ordered after the return 36 wk visit-did not schedule Gonorrhea at the 36 visit rtn visit-treated and neg AMANDA on 20SEP. Chief Complaint: Contractions, term Information Provided By: Patient Care Care: Limited Care Dating Final EDC: Nov 20, 2016 Final EDC by: LMP, 1st trimester (US) Past Medical History Past Obstetrical History : Past Obstetrical History: Multigravida Type of Delivery: Spontaneous Vaginal Del. 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 Past Medical History Medical History denies Surgical History: Tonsilectomy Family History Significant Family History: No pertinent family hx Social History Social history denies E/T/D Marital Status: Family situation: Spouse/partner deployed Psychosocial History: No pertinent psych hx * Smoker: non-smoker Alcohol: Denies Drugs: denies Abuse Violence Screening Have you been hit/kicked/slapp: No Have you been sexually assault: No Imunizations Tdap status: declined Influenza Status: current Allergies Coded Allergies: No Known Allergies (Unverified , 05/08/16) Medications Miscellaneous Medications Multivitamins/ ( Vitamin 27-0.8 mg) 1 Tab Tab, 1 TAB PO Physical Examination Physical Examination GENERAL: Alert and oriented times three. ABDOMEN: Gravid and non-tender to touch. FETUS: Is vertex (VTX) by sterile vaginal examination, 5/80/-2, vtx well applied now EXTREMITIES: No edema. Laboratory Data 24H LABS Laboratory Tests 2 11/19/16 14:25: Serology Scanned Report Hepatitis B Testing Urine Culture: Escherichia (E.) Coli (rpt urine culture was cont'd (mixed)) Pertinent Laboratoy Data Blood Type: B+ RBC Antibody Screen: Negative HIV: Negative Hepatitis B: Negative Hepatitis C: Unknown Rapid Plasma Reagin: Nonreactive Rubella: Immune Varicella: Immune Chlamydia/Gonorrhea: Negative (20sep, pos prior see problem list) Group B Streptococcus: Negative Quad Screen Test: Declined Cystic Fibrosis: Negative Glucose Tolerance Test: 99 Anatomy Ultrasound Placenta Location: Posterior Normal Anatomy: No (2VC EI focus, nl o/w) Placenta Previa: No Assessment Variability: Moderate Accelerations: Positive Decelerations: None Tocometer Contractions: Yes Frequency: regular Duration: greater than 60 seconds Strength: palpated as moderate Assessment/Plan Assessment Active labor Plan Admit and orient. Digital Editor and consent. Diet: clrs. Group B Streptococcus (GBS) neg. Labs and intravenous (IV) per unit protocol. Counseled on Pitocin and induction of labor (IOL). Lactated Ringers (LR): Bolus 1000 mL, then at 125 mL/hr. Anticipate normal spontaneous delivery (). C-S as appropriate. SESSIONS,JULIA Rosen MD Nov 19, 2016 15:03
[2016-11-19] MEDS ORDERED: FENTANYL 2MCG/ML ROPIVACAINE 0.2% IN 0.9% NACL 200ML IVBAG As Ordered ONE (16:28)
--- NOTE | 2016-11-19 17:32 | IPNPDOC ---
Text Note Date of Service The patient was seen on 11/19/16. NOTE NST reassuring with rare variables, mod kayla, accels. Cx per RN with talya after successful epidural, pt starting to feel better now. Admission UTOX pos for marijuana, pt states does not smoke but that mother does , lives with her. Spoke with pt and she knows that PFS will be contacted and they will be coming in to speak with her. Doing well, plan on recheck in a few hours and likely AROM after is comfortable. Sessions VSEh, I+O VSEh I+O Laboratory Tests 11/19/16 14:45 Red Blood Count 4.78, Mean Corpuscular Volume 81.4, Mean Corpuscular Hemoglobin 27.0, Mean Corpuscular Hemoglobin Concent 33.2, Red Cell Distribution Width 14.1 Vital Signs Date Time Temp Pulse Resp B/P (MAP) Pulse Ox O2 Delivery O2 Flow Rate FiO2 11/19/16 13:46 99.1 108 20 144/71 (95) I&O- Last 24 Hours up to 6 AM 11/20/16 05:59 Intake Total 1000 ml Balance 1000 ml SESSIONS,JULIA Rosen MD Nov 19, 2016 17:32
[2016-11-19] MEDS ORDERED: diphenhydrAMINE INJ 50MG/ML VIAL (J1200) IV PRN (18:00)
[2016-11-19] MEDS ORDERED: ONDANSETRON 4MG/2ML VIAL (J2405) IV PRN (18:00)
[2016-11-19] MEDS ORDERED: EPIDURAL/PCA KEYS XX PRN (18:00)
[2016-11-19] MEDS ORDERED: LACTATED RINGER'S 1000 ML IV PRN (18:00)
[2016-11-19] MEDS ORDERED: ePHEDrine SULFATE 25 MG/5 ML(5MG/ML) SYRINGE IV PRN (18:00)
[2016-11-19] MEDS ORDERED: EPIDURAL COMMENT XX SCH (18:00)
[2016-11-19] MEDS ORDERED: FENTANYL/ROPIVACAINE/NACL BAG 200 ML EPIDURAL SCH (18:00)
[2016-11-19] MEDS ORDERED: NALOXONE INJ 0.4 MG/1 ML VIAL (J2310) IV PRN (18:00)
[2016-11-19] MEDS ORDERED: REFRIGERATOR IV KEYS XX PRN (18:00)
--- NOTE | 2016-11-19 20:19 | IPNPDOC ---
Text Note Date of Service The patient was seen on 11/19/16. NOTE NST reassuring, pos acels mod kayla, difficult to monitor at times. Cx C/C/+2/KAUSHIK AROM clr fluid Start pushing in ~20-30 min Sessions VS,Eh, I+O VS, Eh, I+O Laboratory Tests 11/19/16 14:45 Red Blood Count 4.78, Mean Corpuscular Volume 81.4, Mean Corpuscular Hemoglobin 27.0, Mean Corpuscular Hemoglobin Concent 33.2, Red Cell Distribution Width 14.1 Vital Signs Date Time Temp Pulse Resp B/P (MAP) Pulse Ox O2 Delivery O2 Flow Rate FiO2 11/19/16 18:08 86 130/73 (92) 11/19/16 17:36 99.3 18 I&O- Last 24 Hours up to 6 AM 11/20/16 05:59 Intake Total 1000 ml Balance 1000 ml SESSIONS,JULIA Rosen MD Nov 19, 2016 20:19
[2016-11-19] MEDS ORDERED: OXYTOCIN 30 UNITS IN 0.9% NaCl 500ML IV BAG (J2590) As Ordered ONE (20:25)
[2016-11-19] MEDS: DOCUSATE SODIUM 100 MG CAP PO SCH (21:00)
[2016-11-19] MEDS ORDERED: OXYTOCIN DRIP 30 UNITS in APPROPRIATE DILUENT 1 EA IV SCH (21:25)
[2016-11-19] MEDS ORDERED: MEASLES,MUMPS,RUBELLA VACCINE INJ (MMR-II) (90707) SC SCH (21:30)
[2016-11-19] MEDS ORDERED: METOCLOPRAMIDE INJ 10MG/2ML VIAL (J2765) IV PRN (21:30)
[2016-11-19] MEDS ORDERED: RHOGAM 300 MCG (1500 IU) INJ (J2790) IM SCH (21:30)
[2016-11-19] MEDS ORDERED: ACETAMINOPHEN TAB 650MG DOSE (2X325MG) PO PRN (21:30)
[2016-11-19] MEDS ORDERED: IBUPROFEN 800 MG TAB PO PRN (21:30)
--- NOTE | 2016-11-19 21:36 | DNPDOC ---
[facility] Delivery Note Delivery Note DATE OF DELIVERY: @2032 PREDELIVERY DIAGNOSIS: 39 6/7 weeks' gestation and labor. POST DELIVERY DIAGNOSIS: Delivered. PROCEDURE: Spontaneous vaginal delivery COUNTY PROGRAM TECHNICIAN: Dr. Castro ANESTHESIA: Epidural ESTIMATED BLOOD LOSS: 200 mL. FINDINGS: 7 pound 0 ounce male , Score 9/9, nuchal cord times 1, loose DELIVERY SUMMARY: Rapid progress after AROM, called to room and vtx was delivered. Gloves quickly donned and gentle downward traction on the ant shoulder (right) followed by the post shoulder with no delay. Vigorous infant to abd. Cord C/C by GM. Cord blood. Placenta del'd intact with slight traction. Fundus firm. No lacs. Sasha CASTRO,JULIA Rosen MD Nov 19, 2016 21:36
[2016-11-20 05:54] VITALS: BP 117/67
[2016-11-20] MEDS: LR 1,000 ML IV SCH ×3 (06:30→22:30)
--- NOTE | 2016-11-20 07:01 | IPNPDOC ---
Text Note Date of Service The patient was seen on 11/20/16. NOTE PPD1 prog note States feeling well, no complaints. No heavy VB. Pain controlled. Voiding, ambulatory. Bonding well with infant. VSSAF CTAB RRR Ut at U-2, firm Ext no CCE a/p: Doing well. d/c likely tomorrow. PFS to see mother/infant today. Sessions Eh BERRIOS, I+O VSEh I+O Laboratory Tests 11/19/16 14:45 Red Blood Count 4.78, Mean Corpuscular Volume 81.4, Mean Corpuscular Hemoglobin 27.0, Mean Corpuscular Hemoglobin Concent 33.2, Red Cell Distribution Width 14.1 Vital Signs Date Time Temp Pulse Resp B/P (MAP) Pulse Ox O2 Delivery O2 Flow Rate FiO2 11/20/16 05:54 98.0 82 18 117/67 (84) SESSIONS,JULIA Rosen MD Nov 20, 2016 07:01
[2016-11-20] MEDS: PRENATAL VITAMINS CHEWABLE TABLET PO SCH (09:26)
[2016-11-20] MEDS: DOCUSATE SODIUM 100 MG CAP PO SCH ×2 (09:26→19:53)
[2016-11-20 18:23] VITALS: BP 120/68
[2016-11-21] MEDS: LR 1,000 ML IV SCH (03:26)
[2016-11-21 05:50] VITALS: BP 137/73
[2016-11-21] MEDS: PRENATAL VITAMINS CHEWABLE TABLET PO SCH (08:34)
[2016-11-21] MEDS: DOCUSATE SODIUM 100 MG CAP PO SCH ×2 (08:34→08:35)
[2016-11-24 08:17] LABS: GC Carboxy THC 42 ng/mL (Cutoff=10)
== END 2016-11-21 12:04 | disposition home or self-care (01) | DRG 775 ==
LOC: M LDO 13:26 → M LDI 14:20 → M OBS 22:46
PROVIDERS: ADMIT Obstetrics & Gynecology; ATTEND Obstetrics & Gynecology
PROC: 10E0XZZ Delivery of Products of Conception, External Approach (ICD-10-PCS; principal; 2016-11-19)
PROC: 10907ZC Drainage of Amniotic Fluid, Therapeutic from Products of Conception, Via Natural or Artificial Opening (ICD-10-PCS; 2016-11-19)
PROC: 3E033VJ Introduction of Other Hormone into Peripheral Vein, Percutaneous Approach (ICD-10-PCS; 2016-11-19)
DX: O99.344 Other mental disorders complicating childbirth (principal); O09.33 Supervision of pregnancy with insufficient antenatal care, third trimester; Z37.0 Single live birth; Z3A.39 39 weeks gestation of pregnancy; F12.10 Cannabis abuse, uncomplicated

== ENCOUNTER 2017-08-25 14:15 | Emergency (ER) | payer OTHER ==
[2017-08-25 16:12] LABS: BASO % 0.5 % (0.0-1.0); EOS % 0.5 % (0.0-3.0); HEMATOCRIT 39.1 % (36.0-47.0); HEMOGLOBIN 12.9 g/dl (12.0-15.5); IMMATURE GRANULOCYTE % 0.2 % (0-3.0); LYMPH # 2.8 10^3/uL (1.5-6.5); LYMPH % 33.4 % (24.0-44.0); MEAN CORPUSCULAR HEMOGLOBIN 27.7 pg (27.0-33.0); MEAN CORPUSCULAR VOLUME 84.1 fl (80.0-96.0); MONO # 0.6 10^3/uL (0.0-0.8); MONO % 6.6 % (0.0-5.0); NEUTROPHILS % 58.8 % (36.0-66.0); PLATELET COUNT, AUTOMATED 255 10^3/uL (150-450); RED BLOOD COUNT 4.65 10^6/uL (4.00-5.40); RED CELL DISTRIBUTION WIDTH 13.5 % (11.5-14.5); WHITE BLOOD COUNT 8.5 10^3/uL (4.0-10.0)
[2017-08-25 16:32] LABS: HCG, SERUM QUANTITATIVE 25 MIU/ML
[2017-08-25 18:56] LABS: CHLAMYDIA DNA AMPLIFICATION NEGATIVE (NEGATIVE); GC DNA AMPLIFICATION NEGATIVE (NEGATIVE)
== END 2017-08-25 17:45 | disposition home or self-care (01) ==
LOC: M ED 14:15
DX: O20.8 Other hemorrhage in early pregnancy (principal); Z72.0 Tobacco use
CPT/HCPCS: 76801

== ENCOUNTER → 2018-05-21 | Outpatient (REF) | payer BC, OTHER | LOC: M SFHCLERA 18:42 | PROVIDERS: ATTEND Physician Assistant | DX: R35.0 Frequency of micturition (principal) ==

== ENCOUNTER 2018-05-28 14:54 | Emergency (ER) | payer OTHER, SELFPAY ==
[~2018-05-28] VITALS: Ht 167.6 cm; Wt 105.3 kg
[2018-05-28 14:54] VITALS: BP 136/84
== END 2018-05-28 19:27 | disposition left against medical advice (07) ==
LOC: M ED 14:54
DX: Z53.21 Procedure and treatment not carried out due to patient leaving prior to being seen by health care provider (principal)

== ENCOUNTER → 2018-06-03 | Outpatient (REF) | payer OTHER ==
[2018-06-03 12:46] LABS: HEMATOCRIT 38.8 % (36.0-47.0); HEMOGLOBIN 12.8 g/dl (12.0-15.5); MEAN CORPUSCULAR HEMOGLOBIN 27.8 pg (27.0-33.0); MEAN CORPUSCULAR VOLUME 84.2 fl (80.0-96.0); PLATELET COUNT, AUTOMATED 281 10^3/uL (150-450); RED BLOOD COUNT 4.61 10^6/uL (4.00-5.40); WHITE BLOOD COUNT 9.1 10^3/uL (4.0-10.0)
[2018-06-03 13:33] LABS: HCG, SERUM QUANTITATIVE 50773 MIU/ML; RUBELLA IgG QUALITATIVE IMMUNE (IMMUNE)
[2018-06-03 13:57] LABS: HEPATITIS C VIRUS ABY INDEX 0.1 INDEX (<0.8); HIV 1&2 SCREEN CENTAUR NEGATIVE (NEGATIVE)
== END ==
LOC: M LAB REF 12:10
PROVIDERS: ATTEND Nurse Practitioner Women's Health
DX: Z32.01 Encounter for pregnancy test, result positive (principal); O36.80X0 Pregnancy with inconclusive fetal viability, not applicable or unspecified

== ENCOUNTER 2018-09-07 14:04 | Emergency (ER) | payer BC, OTHER ==
[~2018-09-07] VITALS: Ht 165.1 cm; Wt 103.4 kg
[2018-09-07 14:55] LABS: BASO % 0.2 % (0.0-1.0); EOS % 0.4 % (0.0-3.0); HEMOGLOBIN 13.2 g/dl (12.0-15.5); LYMPH # 2.2 10^3/uL (1.5-6.5); LYMPH % 22.5 % (24.0-44.0); MEAN CORPUSCULAR HEMOGLOBIN 29.8 pg (27.0-33.0); MEAN CORPUSCULAR HGB CONC 33.8 g/dl (32.0-36.5); MONO # 0.7 10^3/uL (0.0-0.8); MONO % 6.9 % (0.0-5.0); NEUTROPHILS # 6.9 10^3/uL (1.8-7.7); NEUTROPHILS % 69.6 % (36.0-66.0); PLATELET COUNT, AUTOMATED 252 10^3/uL (150-450); RED BLOOD COUNT 4.43 10^6/uL (4.00-5.40); WHITE BLOOD COUNT 9.9 10^3/uL (4.0-10.0)
[2018-09-07 15:47] LABS: BLOOD UREA NITROGEN 4 MG/DL (7-18); CALCIUM LEVEL 8.9 MG/DL (8.5-10.1); CARBON DIOXIDE LEVEL 23 MEQ/L (21-32); CHLORIDE LEVEL 104 MEQ/L (98-107); CREATININE FOR GFR 0.61 MG/DL (0.55-1.30); GLOMERULAR FILTRATION RATE > 60.0 (>60); GLUCOSE, FASTING 80 MG/DL (70-100); HCG, SERUM QUANTITATIVE 9560 MIU/ML; POTASSIUM SERUM 3.5 MEQ/L (3.5-5.1); SODIUM LEVEL 138 MEQ/L (136-145)
[2018-09-07] MEDS ORDERED: NITROFURANTOIN (MACROBID) 100 MG CAP PO ONE (17:30)
[2018-09-07] MEDS ORDERED: METOCLOPRAMIDE 10 MG TAB PO ONE (18:00)
[2018-09-07] MEDS ORDERED: METO10TA2 PO (18:01)
[2018-09-07] MEDS ORDERED: NITR100C2 PO (18:01)
[2018-09-07] MEDS ORDERED: CAPS0.022 TOP (18:01)
[2018-09-07 18:10] VITALS: BP 125/67
== END 2018-09-07 18:13 | disposition home or self-care (01) ==
LOC: M ED 14:04
DX: O23.42 Unspecified infection of urinary tract in pregnancy, second trimester (principal); O99.322 Drug use complicating pregnancy, second trimester; Z87.59 Personal history of other complications of pregnancy, childbirth and the puerperium; Z3A.22 22 weeks gestation of pregnancy

== ENCOUNTER → 2018-09-25 | Outpatient (REF) | payer BC, MEDICAID ==
[~2018-09-25] MED LIST changes: +CAPS0.022 TOP; +METO10TA2 PO; +NITR100C2 PO
[2018-09-25 21:58] LABS: CHLAMYDIA DNA AMPLIFICATION POSITIVE (NEGATIVE); GC DNA AMPLIFICATION NEGATIVE (NEGATIVE)
== END ==
LOC: M LAB REF 17:12
PROVIDERS: ATTEND Advanced Practice Midwife
DX: Z34.82 Encounter for supervision of other normal pregnancy, second trimester (principal)

== ENCOUNTER → 2018-09-26 | Outpatient (CLI) | payer BC, MEDICAID ==
[~2018-09-26] MED LIST changes: +ACET-683 PO; +IBUP80TA PO; +PRENCHW PO
--- NOTE | 2018-09-27 03:25 | REP ---
Clinical: Anatomical evaluation. Comparison: None . Findings: Examination demonstrates a single live intrauterine in breech presentation. motion is identified by technologist. Placenta is noted anterior and grade zero without evidence for placenta previa or abruption. Amniotic fluid volume is normal. Cervix measures 3.5 cm in length and appears closed. No evidence for nuchal cord. Gestational age by LMP 24 weeks 5-day with MENDEL 01/11/2019 . Gestational age by current measurements 26 weeks 0 days with MENDEL 01/02/2019 . FHR equals 162 beats per minute. BPD 6.4 cm 25 weeks 6 days HC 24.1 cm 26 weeks 1 day AC 21.7 cm 26 weeks 1 day FL 4.7 cm 25 weeks 6 days HL 4.4 cm 26 weeks 1 day HC/AC ratio 1.11 Estimated weight 883 grams ( 83rd percentile). Anatomical assessment demonstrates normal structures including cranium, choroid plexus, cavum, cerebellum/posterior fossa, facial features, lungs, four-chamber heart/ventricular outflow tracts, diaphragm, stomach, cord insertion/three-vessel cord, kidneys/bladder, spine, and extremities. Impression: Single live intrauterine in breech presentation demonstrating appropriate interval growth. Anatomical assessment is complete and normal. No gross abnormalities are identified. Electronically Signed by Grant Novak MD 09/27/2018 03:16 A
== END ==
LOC: M RAD 13:46
PROVIDERS: ATTEND Advanced Practice Midwife
DX: Z34.82 Encounter for supervision of other normal pregnancy, second trimester (principal); Z3A.26 26 weeks gestation of pregnancy

== ENCOUNTER → 2018-10-22 | Outpatient (REF) | payer BC, MEDICAID ==
[~2018-10-22] MED LIST changes: -ACET-683 PO; -IBUP80TA PO; -PRENCHW PO
[2018-10-22 16:12] LABS: CHLAMYDIA DNA AMPLIFICATION NEGATIVE (NEGATIVE); GC DNA AMPLIFICATION NEGATIVE (NEGATIVE)
== END ==
LOC: M LAB REF 13:32
PROVIDERS: ATTEND Advanced Practice Midwife
DX: Z34.82 Encounter for supervision of other normal pregnancy, second trimester (principal)

== ENCOUNTER → 2018-12-13 | Outpatient (REF) | payer BC, MEDICAID ==
[2018-12-13 17:28] LABS: CHLAMYDIA DNA AMPLIFICATION NEGATIVE (NEGATIVE); GC DNA AMPLIFICATION NEGATIVE (NEGATIVE)
== END ==
LOC: M LAB REF 13:08
PROVIDERS: ATTEND Advanced Practice Midwife
DX: O09.293 Supervision of pregnancy with other poor reproductive or obstetric history, third trimester (principal)

== ENCOUNTER 2019-01-05 10:19 | Inpatient (IN) | payer BC, MEDICAID ==
[~2019-01-05] VITALS: Ht 165.1 cm; Wt 101.0 kg
[2019-01-05] VITALS (13 sets, daily range): BP systolic 124–147; BP diastolic 72–90
[2019-01-05] MEDS: miSOPROStol 50 MCG 1/2 TAB (S0191) PO SCH ×2 (11:27→15:00)
[2019-01-05 11:50] LABS: HEMATOCRIT 37.1 % (36.0-47.0); HEMOGLOBIN 11.9 g/dl (12.0-15.5); MEAN CORPUSCULAR HEMOGLOBIN 27.3 pg (27.0-33.0); MEAN CORPUSCULAR HGB CONC 32.1 g/dl (32.0-36.5); MEAN CORPUSCULAR VOLUME 85.1 fl (80.0-96.0); PLATELET COUNT, AUTOMATED 217 10^3/uL (150-450); RED BLOOD COUNT 4.36 10^6/uL (4.00-5.40); WHITE BLOOD COUNT 8.1 10^3/uL (4.0-10.0)
[2019-01-05] MEDS ORDERED: PENICILLIN G POTASSIUM IV 5 MU in D5W MINI-BAG PLUS 100 ML IV STA (11:57)
--- NOTE | 2019-01-05 19:00 | HPE ---
DATE OF ADMISSION: 01/05/2019 REASON FOR ADMISSION: Induction of labor. HISTORY OF PRESENT ILLNESS: Ms. Ramírez is a 23-year-old, 5, para 2 who presents at 39 weeks 1 day estimated gestational age by first trimester ultrasound here for induction of labor. Her course is remarkable for transferred care. Her history is also significant for stillbirth at 24 weeks due to PPROM and cord prolapse. She has requested induction of labor at 39 weeks. PAST MEDICAL HISTORY: None. PAST SURGICAL HISTORY: She has had: 1. Cholecystectomy. 2. Tonsillectomy and adenoidectomy. OBSTETRICAL HISTORY: She is 5, para 2. Her first was a stillbirth at 24 weeks, PPROM with cord prolapse. Her second was uncomplicated at term and this was followed by a second uncomplicated delivered at term. She has been proven to 6 pounds 12 ounces. She has had one miscarriage. MEDICATIONS: Includes: - vitamins ALLERGIES: She has no known drug allergies. PHYSICAL EXAMINATION: Vital signs: Stable. She is afebrile. General appearance: Well appearing, no acute distress. She has a category one heart rate tracing, heart rate is 140, moderate variability, no decelerations. Her lungs are clear to auscultation bilaterally. Cardiovascular: Heart regular rate and rhythm. Abdomen is soft, gravid, nontender. EFW 3600 grams. Cervical exam: She is 1 cm dilated, 25% effaced, -3. LABORATORY DATA: Her blood type is B+. Antibody screen is negative. Rubella is immune. RPR is nonreactive. Hepatitis surface antigen negative. HIV is negative. Hepatitis C is nonreactive. Chlamydia and gonorrhea screens are negative. She has not completed her 1 hour Glucola. She is GBS positive. ASSESSMENT: 1. Ms. Ramírez is a 23-year-old, 5, para 2, at 39 weeks 1 day estimated gestational age here for induction of labor electively. 2. Reassuring status. 3. GBS positive. PLAN: 1. Admit to labor and delivery, CBC, RPR, type and screen. 2. Antibiotics in labor after rupture of membranes for GBS positive. 3. The patient has been thoroughly counseled in regards to induction of labor. I discussed medications as well as procedures performed in labor and delivery. All questions have been answered. She desires to proceed with induction of labor. She has also been verbally consented for emergency surgery, blood products and anesthesia and desires to proceed. We will initiate her induction with 50 mcg of oral misoprostol. MTDD
[2019-01-05] MEDS ORDERED: LR 1,000 ML IV SCH (19:14)
[2019-01-05] MEDS ORDERED: OXYTOCIN DRIP 30 UNITS in IV 1 EA IV SCH (19:15)
[2019-01-06] VITALS (28 sets, daily range): BP systolic 78–162; BP diastolic 39–92
[2019-01-06] MEDS ORDERED: PENICILLIN G POTASSIUM IV 2.5 MU in IV 1 EA IV SCH (00:30)
[2019-01-06] MEDS ORDERED: FENTANYL 2MCG/ML ROPIVACAINE 0.2% IN 0.9% NACL 100ML IVBAG As Ordered ONE (00:35)
[2019-01-06] MEDS ORDERED: NALOXONE INJ 0.4 MG/1 ML VIAL (J2310) IV PRN (01:43)
[2019-01-06] MEDS ORDERED: diphenhydrAMINE INJ 50MG/ML VIAL (J1200) IV PRN (01:43)
[2019-01-06] MEDS ORDERED: EPIDURAL COMMENT XX SCH (01:43)
[2019-01-06] MEDS ORDERED: FENTANYL/ROPIVACAINE/NACL BAG 100 ML EPIDURAL SCH (01:43)
[2019-01-06] MEDS ORDERED: LACTATED RINGER'S 1000 ML IV PRN (01:43)
[2019-01-06] MEDS ORDERED: REFRIGERATOR IV KEYS XX PRN (01:43)
[2019-01-06] MEDS ORDERED: ONDANSETRON 4MG/2ML VIAL (J2405) IV PRN (01:43)
[2019-01-06] MEDS ORDERED: EPIDURAL/PCA KEYS XX PRN (01:43)
[2019-01-06] MEDS ORDERED: ePHEDrine SULFATE 25 MG/5 ML(5MG/ML) SYRINGE IV PRN (01:43)
[2019-01-06] MEDS ORDERED: ePHEDrine SULFATE 25 MG/5 ML(5MG/ML) SYRINGE As Ordered ONE (01:51)
[2019-01-06] MEDS ORDERED: OXYTOCIN DRIP 30 UNITS in IV 1 EA IV SCH (03:25)
[2019-01-06] MEDS ORDERED: IBUPROFEN 800 MG TAB PO PRN (03:30)
[2019-01-06] MEDS ORDERED: ACETAMINOPHEN 500 MG TAB PO PRN (03:30)
[2019-01-06] MEDS ORDERED: ANUSOL HC CREAM 30GM TOP PRN (03:30)
[2019-01-06] MEDS ORDERED: DOCUSATE SODIUM 100 MG CAP PO PRN (03:30)
[2019-01-06] MEDS ORDERED: ACETAMINOPHEN TAB 650MG DOSE (2X325MG) PO PRN (03:30)
[2019-01-06] MEDS ORDERED: RHOGAM 300 MCG (1500 IU) INJ (J2790) IM SCH (03:30)
[2019-01-06] MEDS ORDERED: METHYLERGONOVINE MALEATE 0.2 MG TAB PO PRN (03:30)
[2019-01-06] MEDS ORDERED: MOM 30ML SUSPENSION UDC PO PRN (03:30)
[2019-01-06] MEDS ORDERED: DIBUCAINE 1% OINTMENT 30GM TOP PRN (03:30)
[2019-01-06] MEDS ORDERED: MEASLES,MUMPS,RUBELLA VACCINE INJ (MMR-II) (90707) SC SCH (03:30)
[2019-01-06] MEDS ORDERED: IBUPROFEN 600 MG TAB PO PRN (03:30)
--- NOTE | 2019-01-06 07:39 | DN ---
DATE OF DELIVERY: 01/06/2019 TIME OF : 025 GENDER: Male SCORES: 9 and 9. WEIGHT: 8 pounds 1 ounce or 3660 grams. ESTIMATED BLOOD LOSS: 300 mL. ANESTHESIA: Epidural. LACERATIONS: None. COUNTS: Five laparotomy sponges accounted for prior to and after the delivery. DELIVERY NOTE: On the December at 0252 Ms. Ramírez a 23-year-old 5 now para 3 had a spontaneous vaginal delivery of a live born male infant, scores of 9 and 9, weight was 8 pounds 1 ounce or 3660 grams. Head was delivered occipitoanterior (OA) over an intact perineum followed by delivery of shoulders and corpus. Infant was handed mom with good cry. Cord was clamped times two and was cut by support person under my direction. The placenta was then drained and delivered grossly intact. The premixed bag of 500 mL of normal saline with 30 units of Pitocin was bolused along with uterine massage. The uterus was firm. On inspection cervix, vagina, and perineum was grossly intact and hemostatic. Mom and baby recovering in stable condition.
[2019-01-06] MEDS: PRENATAL VITAMINS CHEWABLE TABLET PO SCH (09:00)
[2019-01-07 06:00] VITALS: BP 124/74
[2019-01-07] MEDS ORDERED: ACET-683 PO (06:56)
[2019-01-07] MEDS ORDERED: PRENCHW PO (06:56)
[2019-01-07] MEDS ORDERED: IBUP80TA PO (06:56)
[2019-01-07] MEDS: PRENATAL VITAMINS CHEWABLE TABLET PO SCH (07:46)
== END 2019-01-07 15:30 | disposition home or self-care (01) | DRG 560 ==
LOC: M LDI 10:19 → M OBS 01-06 05:45
PROVIDERS: ADMIT Obstetrics & Gynecology; ATTEND Obstetrics & Gynecology
PROC: 3E0P7GC Introduction of Other Therapeutic Substance into Female Reproductive, Via Natural or Artificial Opening (ICD-10-PCS; 2019-01-05)
PROC: 10E0XZZ Delivery of Products of Conception, External Approach (ICD-10-PCS; principal; 2019-01-06)
DX: O99.824 Streptococcus B carrier state complicating childbirth (principal); Z3A.39 39 weeks gestation of pregnancy; Z37.0 Single live birth

== ENCOUNTER → 2019-04-11 | Outpatient (CLI) | payer OTHER ==
[~2019-04-11] MED LIST changes: +ACET-683 PO; +IBUP80TA PO; +PRENCHW PO
== END ==
LOC: M OUTALCOH 13:25
PROVIDERS: ATTEND Psychiatry & Neurology Addiction Medicine
DX: F12.10 Cannabis abuse, uncomplicated (principal)

== ENCOUNTER 2019-05-01 10:00 | Outpatient (RCR) | payer MEDICAID, OTHER | END 2019-05-20 | LOC: M OUTALCOH 10:00 | PROVIDERS: ATTEND Psychiatry & Neurology Addiction Medicine | DX: F12.20 Cannabis dependence, uncomplicated (principal) ==

== ENCOUNTER → 2019-06-20 | Outpatient (CLI) | payer MEDICAID | LOC: M OUTALCOH 07:57 | PROVIDERS: ATTEND Psychiatry & Neurology Addiction Medicine | DX: Z13.39 Encounter for screening examination for other mental health and behavioral disorders (principal); F12.10 Cannabis abuse, uncomplicated ==

== ENCOUNTER → 2019-06-30 | Outpatient (REF) | payer OTHER | LOC: M PLALAB 10:47 | PROVIDERS: ATTEND Obstetrics & Gynecology | DX: Z34.91 Encounter for supervision of normal pregnancy, unspecified, first trimester (principal) ==

== ENCOUNTER 2019-07-18 13:34 | Outpatient (RCR) | payer MEDICAID | END 2019-07-20 | LOC: M OUTALCOH 13:34 | PROVIDERS: ATTEND Psychiatry & Neurology Addiction Medicine | DX: F12.20 Cannabis dependence, uncomplicated (principal) ==

== ENCOUNTER 2019-08-15 13:00 | Outpatient (RCR) | payer MEDICAID | END 2019-08-19 | LOC: M OUTALCOH 13:00 | PROVIDERS: ATTEND Psychiatry & Neurology Addiction Medicine | DX: F12.20 Cannabis dependence, uncomplicated (principal) ==

== ENCOUNTER → 2019-08-21 | Outpatient (REF) | payer OTHER ==
[2019-08-21 13:30] LABS: HEMOGLOBIN 13.2 g/dl (12.0-15.5); MEAN CORPUSCULAR HEMOGLOBIN 28.7 pg (27.0-33.0); MEAN CORPUSCULAR HGB CONC 33.8 g/dl (32.0-36.5); MEAN CORPUSCULAR VOLUME 84.8 fl (80.0-96.0); PLATELET COUNT, AUTOMATED 233 10^3/uL (150-450); WHITE BLOOD COUNT 10.5 10^3/uL (4.0-10.0)
[2019-08-21 15:25] LABS: CHLAMYDIA DNA AMPLIFICATION NEGATIVE (NEGATIVE); GC DNA AMPLIFICATION NEGATIVE (NEGATIVE)
[2019-08-22 09:21] LABS: HEPATITIS B SURFACE ANTIGEN NEGATIVE (NEGATIVE); HEPATITIS C VIRUS ABY INDEX 0.1 INDEX (<0.8); HIV 1&2 SCREEN CENTAUR NEGATIVE (NEGATIVE)
== END ==
LOC: M PLALAB 11:00
PROVIDERS: ATTEND Obstetrics & Gynecology
DX: O09.292 Supervision of pregnancy with other poor reproductive or obstetric history, second trimester (principal); Z3A.17 17 weeks gestation of pregnancy

== ENCOUNTER → 2019-09-04 | Outpatient (CLI) | payer OTHER ==
--- NOTE | 2019-09-04 14:52 | REP ---
REASON: anatomy. Multiple ultrasonographic images of the gravid uterus show a single living intrauterine gestation in transverse head to the maternal left position. Doppler interrogation of the heart shows a heart rate of 160 beats per minute. The placenta is anterior and not low-lying. The subjective amniotic fluid volume is within normal limits. The cervix measures 3.5 cm in length and is closed. Evaluation of the maternal adnexal spaces showed no abnormalities. anatomical structures seen to be within normal limits are as follows: Four-chamber heart, left ventricular outflow tract, stomach, three-vessel umbilical cord, cord insertion, kidneys, upper and lower extremities. Structures suboptimally visualized are as follows: Cranium and intracranial contents, upper lip, right ventricular outflow tract, and spine and urinary bladder. BPD 4.4 cm = 19 weeks 1 day HC 16.4 cm = 19 weeks 1 day AC 13.8 cm = 19 weeks 1 day FL 3.0 cm = 19 weeks 1 day. Estimated weight is 278 grams which is at the 42nd percentile for a 51-tcjx-1-day gestational age. IMPRESSION: Single living intrauterine gestation as described above with an estimated gestational age of 19 weeks 0 days via composite criteria and an estimated date of delivery of 01/29/2020 by today's exam. No anomalies were detected, however, I recommend a followup examination to better visualized those structures not well seen today as described above.
== END ==
LOC: M WHC 11:10
PROVIDERS: ATTEND Obstetrics & Gynecology
DX: O34.82 Maternal care for other abnormalities of pelvic organs, second trimester (principal); Z3A.19 19 weeks gestation of pregnancy

== ENCOUNTER 2019-09-17 08:00 | Outpatient (RCR) | payer OTHER, MEDICAID | END 2019-09-19 | LOC: M OUTALCOH 08:00 | PROVIDERS: ATTEND Psychiatry & Neurology Addiction Medicine | DX: F12.20 Cannabis dependence, uncomplicated (principal) ==

== ENCOUNTER → 2019-10-20 | Outpatient (RCR) | payer MEDICAID, OTHER | LOC: M OUTALCOH 09-22 14:00 | PROVIDERS: ATTEND Psychiatry & Neurology Addiction Medicine | DX: F12.20 Cannabis dependence, uncomplicated (principal) ==

== ENCOUNTER → 2019-10-23 | Outpatient (CLI) | payer MEDICAID, OTHER ==
--- NOTE | 2019-11-18 13:08 | REP ---
FOLLOW-UP OBSTETRICAL ULTRASOUND CLINICAL: Follow-up anatomical evaluation. COMPARISON: 09/04/2019. TECHNIQUE: Transabdominal obstetrical ultrasound with color Doppler evaluation. FINDINGS: Ultrasound examination demonstrates a single live intrauterine in cephalic presentation. motion was identified by the technologist. Placenta is noted anteriorly grade 1 and without evidence for placenta previa or abruption. Amniotic fluid volume is normal. Cervix measures 3 cm in length and appears closed. heart rate 153 beats per minute. Gestational age by current biometrical measurements 26 weeks 2 days with estimated date of delivery 01/27/2020. Estimated weight 897 grams (33rd percentile). Limited anatomical assessment demonstrates normal cranium, cavum, thalamus, spine, stomach, kidneys/bladder, right cardiac ventricular outflow tract, three- vessel cord/cord insertion, and facial features. IMPRESSION: Single live intrauterine in cephalic presentation demonstrating appropriate interval growth. In conjunction with prior examination, anatomical assessment is complete and normal. MTDD
== END ==
LOC: M WHC 08:29
PROVIDERS: ATTEND Advanced Practice Midwife
DX: Z34.82 Encounter for supervision of other normal pregnancy, second trimester (principal); Z3A.26 26 weeks gestation of pregnancy

== ENCOUNTER → 2019-11-19 | Outpatient (RCR) | payer MEDICAID, OTHER | LOC: M OUTALCOH 10-24 12:09 | PROVIDERS: ATTEND Psychiatry & Neurology Addiction Medicine | DX: F12.20 Cannabis dependence, uncomplicated (principal) ==

== ENCOUNTER → 2019-12-17 | Outpatient (REF) | payer OTHER ==
[2019-12-17 15:33] LABS: HEMATOCRIT 38.7 % (36.0-47.0); HEMOGLOBIN 12.1 g/dl (12.0-15.5); MEAN CORPUSCULAR HEMOGLOBIN 27.4 pg (27.0-33.0); MEAN CORPUSCULAR HGB CONC 31.3 g/dl (32.0-36.5); MEAN CORPUSCULAR VOLUME 87.8 fl (80.0-96.0); PLATELET COUNT, AUTOMATED 237 10^3/uL (150-450); RED BLOOD COUNT 4.41 10^6/uL (4.00-5.40)
== END ==
LOC: M PLALAB 12:32
PROVIDERS: ATTEND Advanced Practice Midwife
DX: O99.213 Obesity complicating pregnancy, third trimester (principal)

== ENCOUNTER → 2019-12-17 | Outpatient (REF) | payer OTHER | LOC: M SFHCWAGY 17:10 | PROVIDERS: ATTEND Advanced Practice Midwife | DX: R35.0 Frequency of micturition (principal); Z11.3 Encounter for screening for infections with a predominantly sexual mode of transmission ==

== ENCOUNTER 2019-12-19 10:00 | Outpatient (RCR) | payer OTHER | END 2019-12-20 | LOC: M OUTALCOH 10:00 | PROVIDERS: ATTEND Psychiatry & Neurology Addiction Medicine | DX: F12.20 Cannabis dependence, uncomplicated (principal) ==

== ENCOUNTER → 2019-12-30 | Outpatient (REF) | payer OTHER | LOC: M SFHCWAGY 16:55 | PROVIDERS: ATTEND Advanced Practice Midwife | DX: Z3A.36 36 weeks gestation of pregnancy (principal) ==

== ENCOUNTER → 2020-01-14 | Outpatient (CLI) | payer OTHER ==
--- NOTE | 2020-01-14 17:08 | REP ---
INDICATION: GROWTH/BPP. COMPARISON: 10/23/2019. TECHNIQUE: Real-time sonographic evaluation of the gravid uterus performed. FINDINGS: Estimated gestational age is30 weeks 1 day, EDC 01/27/2020. Today's measurements indicate appropriate growth. Presentation: Cephalic Placenta anterior, grade 2, without evidence of placenta previa. heart rate is recorded at 147 beats per minute. Amniotic fluid is subjectively normal. LGENROY 12.9, normal 7.3-23.8. Biophysical profile 09/26. Closed cervical length is measured at 3.2 cm. Biometry chart: BPD: 93 mm, 37 weeks 4 days, 43rd percentile. HC: 326 mm, 37 weeks 0 days, 31st percentile AC: 333 mm, 37 weeks 2 days, 37th percentile Femur length: 75 mm, 38 weeks 2 days, 52nd percentile HC to AC ratio: 0.98, normal range 0.90-1.09. Estimated weight: 3229g, 47th percentile. SD ratio umbilical artery 2.02, normal 1.55-3.35 RI 0.51, normal 0.42-0.70. IMPRESSION: Viable single intrauterine gestation as above. <Electronically signed by Sebastian Rand > 01/14/20 [id number]
== END ==
LOC: M WHC 14:14
PROVIDERS: ATTEND Obstetrics & Gynecology
DX: O09.293 Supervision of pregnancy with other poor reproductive or obstetric history, third trimester (principal); Z3A.30 30 weeks gestation of pregnancy

== ENCOUNTER 2020-01-20 08:42 | Inpatient (IN) | payer OTHER ==
[2020-01-20] VITALS (11 sets, daily range): BP systolic 120–141; BP diastolic 63–77
[~2020-01-20] VITALS: Ht 165.1 cm; Wt 116.6 kg
[2020-01-20] MEDS ORDERED: miSOPROStol 50 MCG 1/2 TAB (S0191) SL SCH (09:00)
--- NOTE | 2020-01-20 10:45 | HPEPDOC ---
Obstetrical History & Physical General Date of Admission Jan 20, 2020 at 08:42 History of Present Illness A 24 yr old at 39 wks gestation by LMP consistent with 9 wk ultrasound (EDC=01/27/2020) presents for induction of labor. She denies contractions or vaginal bleeding. There is good movement. Hx is significant for a stillborn at 24 wks and a 2 month old that of SIDS. 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 Second 38 wk living female. Third 39.6 wk living male. Fourth resulted in miscarriage. Fifth 39.2 wk living male that of SIDS at 2 months of age. Surgical History: Gallbladder, Tonsilectomy, Other (adnoidectomy) Family History Significant Family History: Cancer, Diabetes, Hypertension Social History Psychosocial History: Anxiety * Smoker: former Smoker Alcohol: Denies Drugs: other (previous marijuana use, quit 2018) Allergies Coded Allergies: No Known Allergies (Unverified , 01/05/19) Physical Examination Physical Examination GENERAL: Alert and oriented times three. BREAST: . ABDOMEN: Gravid and non-tender to touch. FETUS: Is vertex (VTX) by sterile vaginal examination (SVE), fetus is vertex (VTX) by Cheo. HEART RATE: Regular rate and rhythm. LUNGS: Clear to auscultation (CTA). EXTREMITIES: No edema. No clonus. Laboratory Data 24H LABS Laboratory Tests 2 01/20/20 09:18: Serology Scanned Report Hepatitis B Testing Pertinent Laboratoy Data Group B Streptococcus: Negative Vaginal Examination Dilation: 3 cm Effacement: 70% Station: -2 Cervical Consistency: Soft Cervical Position: Posterior Presentation: Cephalic presentation Position: Vertex (occiput) Assessment Variability: Moderate Accelerations: Positive Decelerations: None Tocometer Contractions: No Assessment/Plan Assessment Flori Ramírez is a 24-year-old (G) 6 para (P) 3-1-1-2 at 39 weeks by 9- week ultrasound. Presents to Labor and Delivery (L&D) for induction of labor. Plan Admit and orient. 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 Diet: as tolerated. Group B Streptococcus (GBS) [negative]. Labs and intravenous (IV) per unit protocol. Counseled on Pitocin and induction of labor (IOL). Anticipate [normal spontaneous delivery ()]. C-S as appropriate. SHILPA PERRY OMS-3 Jan 20, 2020 10:45
[2020-01-20 11:02] LABS: HEMATOCRIT 36.3 % (36.0-47.0); HEMOGLOBIN 11.5 g/dl (12.0-15.5); MEAN CORPUSCULAR HEMOGLOBIN 26.4 pg (27.0-33.0); MEAN CORPUSCULAR HGB CONC 31.7 g/dl (32.0-36.5); MEAN CORPUSCULAR VOLUME 83.4 fl (80.0-96.0); PLATELET COUNT, AUTOMATED 219 10^3/uL (150-450); RED BLOOD COUNT 4.35 10^6/uL (4.00-5.40); WHITE BLOOD COUNT 7.5 10^3/uL (4.0-10.0)
[2020-01-20] MEDS ORDERED: OXYTOCIN DRIP 30 UNITS in IV 1 EA IV SCH (13:30)
[2020-01-20] MEDS: LR 1,000 ML IV SCH (15:32)
[2020-01-21] MEDS ORDERED: FENTANYL 2MCG/ML ROPIVACAINE 0.2% IN 0.9% NACL 100ML IVBAG As Ordered ONE (00:32)
[2020-01-21] MEDS: LR 1,000 ML IV SCH (01:02)
[2020-01-21] MEDS ORDERED: BENZOCAINE 20% HEMORRHOIDAL OINTMENT 28GM TUBE TOP PRN (02:15)
[2020-01-21] MEDS ORDERED: METHYLERGONOVINE MALEATE 0.2 MG TAB PO PRN (02:15)
[2020-01-21] MEDS ORDERED: RHOGAM 300 MCG (1500 IU) INJ (J2790) IM SCH (02:15)
[2020-01-21] MEDS ORDERED: OXYTOCIN DRIP 30 UNITS in IV 1 EA IV ONE (02:15)
[2020-01-21] MEDS ORDERED: MEASLES,MUMPS,RUBELLA VACCINE INJ (MMR-II) (90707) SC SCH (02:15)
[2020-01-21] MEDS ORDERED: IBUPROFEN 600MG TAB PO PRN (02:15)
[2020-01-21] MEDS ORDERED: ACETAMINOPHEN TAB 650MG DOSE (2X325MG) PO PRN (02:15)
[2020-01-21] MEDS ORDERED: DOCUSATE SODIUM 100MG CAPSULE PO PRN (02:15)
[2020-01-21] MEDS ORDERED: ONDANSETRON 4MG/2ML VIAL IV PRN ×2 (02:15→02:30)
[2020-01-21] MEDS ORDERED: IBUPROFEN 800 MG TAB PO PRN (02:15)
[2020-01-21] MEDS ORDERED: ACETAMINOPHEN 500 MG TAB PO PRN (02:15)
--- NOTE | 2020-01-21 02:16 | DNPDOC ---
[facility] Delivery Note Delivery Note DATE OF DELIVERY: January 21, 2020 PREDELIVERY DIAGNOSIS: 39-0/7 weeks' gestation, induction. POST DELIVERY DIAGNOSIS: Delivered. PROCEDURE: Spontaneous vaginal delivery. MRI TECHNOLOGIST: Dr. Lolita Crocker MD ANESTHESIA: epidural. ESTIMATED BLOOD LOSS: 300 mL. FINDINGS: 8 pound 3 ounce male infant, Score 8/9. DELIVERY SUMMARY: Pt is a 24 year-old 6 now para 3-1-1-3 who was admitted for labor induction. She received one dose of Misoprostol. She then received Pitocin. After a 5 minute second stage of labor she had spontaneous vaginal delivery of an 8 lb. 3 oz. Male infant. No nuchal cord. Shoulders delivered with ease. Cord was clamped and cut. Placenta delivered spontaneously and appeared intact. Pt received IV Pitocin immediately after delivery of placenta. No vaginal lacerations present. Sponge counts correct. LOLITA CROCKER MD Jan 21, 2020 02:16
[2020-01-21] MEDS ORDERED: FENTANYL/ROPIVACAINE/NACL BAG 100 ML EPIDURAL SCH (02:30)
[2020-01-21] MEDS ORDERED: diphenhydrAMINE 50MG/ML VIAL (J1200) IV PRN (02:30)
[2020-01-21] MEDS ORDERED: NALOXONE INJ 0.4MG/1ML VIAL (J2310 PER 1MG) IV PRN (02:30)
[2020-01-21] MEDS ORDERED: EPIDURAL COMMENT XX SCH (02:30)
[2020-01-21] MEDS ORDERED: ePHEDrine SULFATE 25 MG/5 ML(5MG/ML) SYRINGE IV PRN (02:30)
[2020-01-21] MEDS ORDERED: REFRIGERATOR IV KEYS XX PRN (02:30)
[2020-01-21] MEDS ORDERED: LACTATED RINGER'S 1000 ML IV PRN (02:30)
[2020-01-21] MEDS ORDERED: EPIDURAL/PCA KEYS XX PRN (02:30)
[2020-01-21 03:50] VITALS: BP 140/80
[2020-01-21 06:00] VITALS: BP 135/76
[2020-01-21] MEDS: PRENATAL VITAMINS CHEWABLE TABLET PO SCH (07:34)
[2020-01-21 18:00] VITALS: BP 131/81
[2020-01-22 05:19] VITALS: BP 123/65
[2020-01-22] MEDS: PRENATAL VITAMINS CHEWABLE TABLET PO SCH (08:20)
== END 2020-01-22 15:25 | disposition home or self-care (01) | DRG 560 ==
LOC: M LDI 08:42 → M OBS 01-21 03:43
PROVIDERS: ADMIT Specialist; ATTEND Specialist
PROC: 3E0P7GC Introduction of Other Therapeutic Substance into Female Reproductive, Via Natural or Artificial Opening (ICD-10-PCS; 2020-01-20)
PROC: 10E0XZZ Delivery of Products of Conception, External Approach (ICD-10-PCS; principal; 2020-01-21)
DX: O80 Encounter for full-term uncomplicated delivery (principal); Z3A.39 39 weeks gestation of pregnancy; Z37.0 Single live birth

== ENCOUNTER 2022-03-10 22:52 | Emergency (ER) | payer OTHER ==
[~2022-03-10] VITALS: Ht 167.6 cm; Wt 110.2 kg
[2022-03-10 22:53] VITALS: BP 137/91
[2022-03-12] MEDS ORDERED: PRED20TA (09:24)
[2022-03-12] MEDS ORDERED: BENA25CA4 PO (09:24)
[2022-03-12] MEDS ORDERED: BACT800T5 PO (12:58)
== END 2022-03-11 01:57 | disposition left against medical advice (07) ==
LOC: M ED 22:52
DX: Z53.21 Procedure and treatment not carried out due to patient leaving prior to being seen by health care provider (principal)

== ENCOUNTER 2022-03-12 08:56 | Emergency (ER) | payer OTHER ==
[~2022-03-12] VITALS: Ht 167.6 cm; Wt 109.3 kg
[2022-03-12] MEDS ORDERED: BENA25CA4 PO (09:24)
[2022-03-12] MEDS ORDERED: PRED20TA (09:24)
[2022-03-12 12:23] LABS: BASO % 0.2 % (0.0-1.0); EOS # 0.1 10^3/uL (0.0-0.5); EOS % 0.3 % (0.0-3.0); HEMOGLOBIN 13.9 g/dl (12.0-15.5); LYMPH # 2.9 10^3/uL (1.5-5.0); LYMPH % 19.8 % (24.0-44.0); MEAN CORPUSCULAR HEMOGLOBIN 28.1 pg (27.0-33.0); MEAN CORPUSCULAR HGB CONC 33.1 g/dl (32.0-36.5); MONO # 0.8 10^3/uL (0.0-0.8); MONO % 5.5 % (2.0-8.0); NEUTROPHILS # 10.8 10^3/uL (1.5-8.5); NEUTROPHILS % 73.7 % (36.0-66.0); PLATELET COUNT, AUTOMATED 287 10^3/uL (150-450); RED BLOOD COUNT 4.94 10^6/uL (4.00-5.40); WHITE BLOOD COUNT 14.6 10^3/uL (4.0-10.0)
[2022-03-12 12:34] LABS: ERYTHROCYTE SEDIMENTATION RATE 61 mm/hr (0-20)
[2022-03-12 12:47] LABS: C REACTIVE PROTEIN QUANTITATIV 1.5 MG/DL (<1.0)
[2022-03-12 12:48] LABS: ALBUMIN 4.3 G/DL (3.2-5.2); BILIRUBIN,DIRECT 0.3 MG/DL (<0.4); BILIRUBIN,TOTAL 0.9 MG/DL (0.3-1.2)
[2022-03-12 12:52] LABS: RSV AMPLIFICATION NEGATIVE (NEGATIVE)
[2022-03-12] MEDS ORDERED: BACT800T5 PO (12:58)
[2022-03-12] MEDS ORDERED: BACTRIM 160MG/800MG DS TAB PO ONE (13:00)
[2022-03-12 13:08] VITALS: BP 137/81
== END 2022-03-12 13:19 | disposition home or self-care (01) ==
LOC: M ED 08:56
DX: R21 Rash and other nonspecific skin eruption (principal); L08.9 Local infection of the skin and subcutaneous tissue, unspecified; K44.9 Diaphragmatic hernia without obstruction or gangrene; F17.200 Nicotine dependence, unspecified, uncomplicated

== ENCOUNTER 2023-01-18 05:28 | Emergency (ER) | payer OTHER ==
[~2023-01-18] VITALS: Ht 167.6 cm; Wt 109.5 kg
[~2023-01-18 05:28] MED LIST changes: +BACT800T5 PO; +BENA25CA4 PO; +PRED20TA
[2023-01-18] MEDS ORDERED: AUGMENTIN 875 MG TAB PO ONE (06:35)
[2023-01-18 06:56] LABS: BASO % 0.4 % (0.0-1.0); EOS % 0.4 % (0.0-3.0); HEMOGLOBIN 13.7 g/dl (12.0-15.5); LYMPH # 2.4 10^3/uL (1.5-5.0); LYMPH % 25.7 % (24.0-44.0); MEAN CORPUSCULAR HEMOGLOBIN 28.1 pg (27.0-33.0); MEAN CORPUSCULAR HGB CONC 33.4 g/dl (32.0-36.5); MONO # 0.6 10^3/uL (0.0-0.8); MONO % 6.8 % (2.0-8.0); NEUTROPHILS # 6.2 10^3/uL (1.5-8.5); NEUTROPHILS % 66.4 % (36.0-66.0); PLATELET COUNT, AUTOMATED 279 10^3/uL (150-450); RED BLOOD COUNT 4.88 10^6/uL (4.00-5.40); WHITE BLOOD COUNT 9.3 10^3/uL (4.0-10.0)
[2023-01-18 06:57] LABS: BLOOD UREA NITROGEN 10 MG/DL (9-23); CALCIUM LEVEL 9.2 MG/DL (8.5-10.1); CARBON DIOXIDE LEVEL 23 MMOL/L (20-31); CHLORIDE LEVEL 106 MMOL/L (98-107); CREATININE FOR GFR 0.62 MG/DL (0.55-1.30); GLOMERULAR FILTRATION RATE > 60.0 (>60); GLUCOSE, FASTING 98 MG/DL (60-100); POTASSIUM SERUM 3.8 MMOL/L (3.5-5.1); SODIUM LEVEL 138 MMOL/L (136-145)
[2023-01-18] MEDS ORDERED: ONDANSETRON 4MG 2ML VIAL IV ONE (07:00)
[2023-01-18] MEDS ORDERED: METOCLOPRAMIDE INJ 10MG/2ML VIAL IV ONE (08:30)
[2023-01-18] MEDS ORDERED: AMOX875T2 PO (09:47)
[2023-01-18] MEDS ORDERED: REGL10TA6 PO (09:48)
[2023-01-18 10:30] VITALS: BP 127/73; TEMP 98.9; O2SAT 100
== END 2023-01-18 10:41 | disposition home or self-care (01) ==
LOC: M ED 05:28
DX: O99.619 Diseases of the digestive system complicating pregnancy, unspecified trimester (principal); O21.9 Vomiting of pregnancy, unspecified; O99.330 Smoking (tobacco) complicating pregnancy, unspecified trimester
CPT/HCPCS: 80048; 84702; 85025; 87486; 87581; 87633; 87798; 96374; 96375; 99284; J2405; J2765

== ENCOUNTER → 2023-02-27 | Outpatient (CLI) | payer OTHER ==
[~2023-02-27] MED LIST changes: +AMOX875T2 PO; +REGL10TA6 PO
== END ==
LOC: M PLALAB 15:50
PROVIDERS: ATTEND Obstetrics & Gynecology
DX: Z34.81 Encounter for supervision of other normal pregnancy, first trimester (principal)

== ENCOUNTER 2023-03-07 04:47 | Emergency (ER) | payer OTHER ==
[~2023-03-07] VITALS: Ht 167.6 cm; Wt 107.1 kg
[2023-03-07 04:48] VITALS: BP 130/80; TEMP 98.3; O2SAT 99
[2023-03-07 06:14] LABS: BASO % 0.2 % (0.0-1.0); EOS # 0.1 10^3/uL (0.0-0.5); EOS % 0.7 % (0.0-3.0); HEMOGLOBIN 12.5 g/dl (12.0-15.5); LYMPH # 2.4 10^3/uL (1.5-5.0); LYMPH % 22.3 % (24.0-44.0); MEAN CORPUSCULAR HGB CONC 33.8 g/dl (32.0-36.5); MEAN CORPUSCULAR VOLUME 85.8 fl (80.0-96.0); MONO # 0.7 10^3/uL (0.0-0.8); MONO % 6.3 % (2.0-8.0); NEUTROPHILS # 7.5 10^3/uL (1.5-8.5); NEUTROPHILS % 69.9 % (36.0-66.0); PLATELET COUNT, AUTOMATED 237 10^3/uL (150-450); RED BLOOD COUNT 4.31 10^6/uL (4.00-5.40); WHITE BLOOD COUNT 10.7 10^3/uL (4.0-10.0)
[2023-03-07 06:33] LABS: APPEARANCE, URINE HAZY (CLEAR); BACTERIA, URINE AUTO NEGATIVE (NEGATIVE); BILIRUBIN, URINE AUTO NEGATIVE (NEGATIVE); BLOOD, URINE BLOOD 2+ (NEGATIVE); COLOR, URINE YELLOW (YELLOW); GLUCOSE, URINE (UA) AUTO NEGATIVE (NEGATIVE); KETONE, URINE AUTO NEGATIVE (NEGATIVE); LEUKOCYTE ESTERASE, URINE AUTO NEGATIVE (NEGATIVE); MUCUS, URINE SMALL (NEGATIVE); NITRITE, URINE AUTO NEGATIVE (NEGATIVE); PROTEIN, URINE AUTO NEGATIVE (NEGATIVE); RBC, URINE AUTO 1 /HPF (0-3); SPECIFIC GRAVITY URINE AUTO 1.014 (1.002-1.035); SQUAMOUS EPITHELIAL CELL UR AU 2 /HPF (0-6); UROBILINOGEN, URINE AUTO 0.2 mg/dL (0.0-2.0); WBC, URINE AUTO 2 /HPF (0-3)
[2023-03-07 06:33] LABS: BLOOD UREA NITROGEN 6 MG/DL (9-23); CALCIUM LEVEL 8.8 MG/DL (8.5-10.1); CARBON DIOXIDE LEVEL 21 MMOL/L (20-31); CHLORIDE LEVEL 106 MMOL/L (98-107); CREATININE FOR GFR 0.47 MG/DL (0.55-1.30); GLOMERULAR FILTRATION RATE > 60.0 (>60); GLUCOSE, FASTING 93 MG/DL (60-100); MAGNESIUM LEVEL 1.7 MG/DL (1.8-2.4); POTASSIUM SERUM 3.8 MMOL/L (3.5-5.1); SODIUM LEVEL 136 MMOL/L (136-145)
[2023-03-07 10:26] LABS: CHLAMYDIA DNA AMPLIFICATION NEGATIVE (NEGATIVE); GC DNA AMPLIFICATION NEGATIVE (NEGATIVE)
== END 2023-03-07 09:12 | disposition home or self-care (01) ==
LOC: M ED 04:47
DX: O46.92 Antepartum hemorrhage, unspecified, second trimester (principal); Z3A.13 13 weeks gestation of pregnancy; Z79.2 Long term (current) use of antibiotics; Z79.810 Long term (current) use of selective estrogen receptor modulators (SERMs)

== ENCOUNTER → 2023-03-09 | Outpatient (CLI) | payer OTHER ==
[2023-03-09 12:08] LABS: HEMATOCRIT 38.2 % (36.0-47.0); HEMOGLOBIN 12.9 g/dl (12.0-15.5); MEAN CORPUSCULAR HEMOGLOBIN 29.1 pg (27.0-33.0); MEAN CORPUSCULAR HGB CONC 33.8 g/dl (32.0-36.5); PLATELET COUNT, AUTOMATED 268 10^3/uL (150-450); RED BLOOD COUNT 4.44 10^6/uL (4.00-5.40); WHITE BLOOD COUNT 11.8 10^3/uL (4.0-10.0)
[2023-03-09 13:05] LABS: HIV 1&2 SCREEN NEGATIVE (NEGATIVE)
[2023-03-09 13:13] LABS: HEPATITIS C VIRUS ABY INDEX 0.05 INDEX (<0.8)
== END ==
LOC: M PLALAB 09:07
PROVIDERS: ATTEND Obstetrics & Gynecology
DX: Z34.81 Encounter for supervision of other normal pregnancy, first trimester (principal)

== ENCOUNTER → 2023-03-09 | Outpatient (CLI) | payer OTHER | LOC: M PLALAB 09:11 | PROVIDERS: ATTEND Obstetrics & Gynecology | DX: Z34.80 Encounter for supervision of other normal pregnancy, unspecified trimester (principal) ==

== ENCOUNTER → 2023-04-13 | Outpatient (CLI) | payer OTHER | LOC: M WHC 10:04 | PROVIDERS: ATTEND Obstetrics & Gynecology | DX: O30.042 Twin pregnancy, dichorionic/diamniotic, second trimester (principal); Z3A.19 19 weeks gestation of pregnancy; O43.112 Circumvallate placenta, second trimester ==

== ENCOUNTER → 2023-06-05 | Outpatient (CLI) | payer OTHER | LOC: M RAD 11:59 | PROVIDERS: ATTEND Advanced Practice Midwife | DX: O30.042 Twin pregnancy, dichorionic/diamniotic, second trimester (principal) ==

== ENCOUNTER → 2023-07-06 | Outpatient (CLI) | payer OTHER ==
[2023-07-06 15:32] LABS: HEMATOCRIT 32.2 % (36.0-47.0); HEMOGLOBIN 10.3 g/dl (12.0-15.5); MEAN CORPUSCULAR HEMOGLOBIN 26.6 pg (27.0-33.0); MEAN CORPUSCULAR VOLUME 83.2 fl (80.0-96.0); PLATELET COUNT, AUTOMATED 223 10^3/uL (150-450); RED BLOOD COUNT 3.87 10^6/uL (4.00-5.40); WHITE BLOOD COUNT 7.5 10^3/uL (4.0-10.0)
[2023-07-06 16:58] LABS: GC DNA AMPLIFICATION NEGATIVE (NEGATIVE)
== END ==
LOC: M PLALAB 10:38
PROVIDERS: ATTEND Specialist
DX: Z34.82 Encounter for supervision of other normal pregnancy, second trimester (principal)

== ENCOUNTER → 2023-07-13 | Outpatient (CLI) | payer OTHER | LOC: M RAD 11:57 | PROVIDERS: ATTEND Advanced Practice Midwife | DX: O30.042 Twin pregnancy, dichorionic/diamniotic, second trimester (principal); Z3A.32 32 weeks gestation of pregnancy ==

== ENCOUNTER → 2023-08-02 | Outpatient (REF) | payer OTHER | LOC: M SFHCWAGY 14:57 | PROVIDERS: ATTEND Specialist | DX: O30.043 Twin pregnancy, dichorionic/diamniotic, third trimester (principal) ==

== ENCOUNTER → 2023-08-03 | Outpatient (CLI) | payer OTHER | LOC: M WHC 12:07 | PROVIDERS: ATTEND Advanced Practice Midwife | DX: O30.043 Twin pregnancy, dichorionic/diamniotic, third trimester (principal); Z3A.35 35 weeks gestation of pregnancy ==

== ENCOUNTER 2023-08-09 12:10 | Outpatient (CLI) | payer OTHER ==
[2023-08-09] VITALS (10 sets, daily range): BP systolic 133–183; BP diastolic 77–96
[~2023-08-09] VITALS: Ht 170.2 cm; Wt 111.8 kg
[2023-08-09] MEDS ORDERED: TUMS750C22 PO (12:36)
[2023-08-09] MEDS ORDERED: HOME MED LIST COMPLETE! XX SCH (12:40)
[2023-08-09] MEDS: BETAMETHASONE SOLUSPAN 6MG/ML 5ML VIAL IM ONE (12:56)
[2023-08-09 15:59] LABS: HEMATOCRIT 31.1 % (36.0-47.0); HEMOGLOBIN 9.9 g/dl (12.0-15.5); MEAN CORPUSCULAR HEMOGLOBIN 25.4 pg (27.0-33.0); MEAN CORPUSCULAR HGB CONC 31.8 g/dl (32.0-36.5); MEAN CORPUSCULAR VOLUME 79.7 fl (80.0-96.0); PLATELET COUNT, AUTOMATED 218 10^3/uL (150-450); WHITE BLOOD COUNT 8.3 10^3/uL (4.0-10.0)
[2023-08-09 16:25] LABS: URIC ACID 4.9 MG/DL (3.1-7.8)
[2023-08-09 16:27] LABS: LDH LACTATE DEHYDROGENASE 180 U/L (120-246)
[2023-08-09 16:28] LABS: ALBUMIN 2.4 G/DL (3.2-5.2); ALKALINE PHOSPHATASE 153 U/L (46-116); ALT/SGPT 32 U/L (7.0-40); AST/SGOT 27 U/L (<34); BILIRUBIN,TOTAL 0.6 MG/DL (0.3-1.2); BLOOD UREA NITROGEN 6 MG/DL (9-23); CARBON DIOXIDE LEVEL 21 MMOL/L (20-31); CHLORIDE LEVEL 109 MMOL/L (98-107); CREATININE FOR GFR 0.43 MG/DL (0.55-1.30); GLOMERULAR FILTRATION RATE > 60.0 (>60); GLUCOSE, FASTING 78 MG/DL (60-100); POTASSIUM SERUM 3.9 MMOL/L (3.5-5.1); SODIUM LEVEL 139 MMOL/L (136-145); TOTAL PROTEIN 6.4 G/DL (5.7-8.2)
[2023-08-09 16:47] LABS: TOTAL PROTEIN,RANDOM URINE 31.9 MG/DL (0.0-14.0)
[2023-08-09 16:53] LABS: CREATININE,RANDOM URINE 108.8 MG/DL
[2023-08-13] MEDS ORDERED: COLA100C5 PO (08:54)
[2023-08-13] MEDS ORDERED: IBUP80TA PO (08:54)
[2023-08-13] MEDS ORDERED: TUMS500C PO (10:03)
== END 2023-08-09 18:50 | disposition home or self-care (01) ==
LOC: M LDO 12:10
PROVIDERS: ATTEND Obstetrics & Gynecology
DX: O30.043 Twin pregnancy, dichorionic/diamniotic, third trimester (principal); O36.5911 Maternal care for other known or suspected poor fetal growth, first trimester, fetus 1; O26.23 Pregnancy care for patient with recurrent pregnancy loss, third trimester; O09.213 Supervision of pregnancy with history of pre-term labor, third trimester; R03.0 Elevated blood-pressure reading, without diagnosis of hypertension; Z3A.36 36 weeks gestation of pregnancy
CPT/HCPCS: 59025; 80053; 82570; 83615; 84156; 84550; 85027; 96372; G0463; J0702

== ENCOUNTER 2023-08-10 12:44 | Outpatient (CLI) | payer OTHER ==
[~2023-08-10] VITALS: Ht 167.6 cm; Wt 110.4 kg
[~2023-08-10 12:44] MED LIST changes: +TUMS750C22 PO
[2023-08-10 13:09] VITALS: BP 132/80
[2023-08-10] MEDS: BETAMETHASONE SOLUSPAN 6MG/ML 5ML VIAL IM ONE (13:32)
[2023-08-13] MEDS ORDERED: COLA100C5 PO (08:54)
[2023-08-13] MEDS ORDERED: IBUP80TA PO (08:54)
[2023-08-13] MEDS ORDERED: TUMS500C PO (10:03)
== END 2023-08-10 13:45 | disposition home or self-care (01) ==
LOC: M LDO 12:44
PROVIDERS: ATTEND Advanced Practice Midwife
DX: O36.5931 Maternal care for other known or suspected poor fetal growth, third trimester, fetus 1 (principal); O30.043 Twin pregnancy, dichorionic/diamniotic, third trimester; Z3A.36 36 weeks gestation of pregnancy
CPT/HCPCS: 59025; 96372; G0463; J0702